=== PATIENT | male | born 1950 | race Caucasian/White ===

== ENCOUNTER 2017-11-27 09:25 | Day surgery (SDC) | payer MEDICARE, BC, MEDICAID ==
[~2017-11-27 09:25] MED LIST: Cataract Ophth Solution EYELF ONE; Lidocaine 4% 5 ML Amp EYELF ONE; Moxifloxacin 0.5% Ophth Soln 3 ML Bottle EYELF ONE; Sodium Chloride 0.9% 10 ML Syringe FLUSH PRN
[2017-11-27] MEDS ORDERED: Sodium Chloride 0.9% 10 ML Syringe IV ONE (09:26)
[2017-11-27] MEDS ORDERED: Midazolam 1 MG/ML 2 ML SDV IV ONE (09:26)
[2017-11-27] MEDS ORDERED: Lidocaine 4% 5 ML Amp EYELF ONE (11:03)
[2017-11-27] MEDS ORDERED: Lidocaine 1% 30 ML SDV ONE (11:03)
[2017-11-27] MEDS ORDERED: Moxifloxacin 0.5% Ophth Soln 3 ML Bottle EYELF ONE (11:03)
[2017-11-27] MEDS ORDERED: prednisoLONE Acetate 1% Ophth Susp 5 ML Bottle EYELF ONE (11:04)
[2017-11-27] MEDS ORDERED: EPINEPHrine 1 MG/ML SDV ONE (11:04)
[2017-11-27] MEDS ORDERED: Balanced Salt Solution Ophth Irrig 500 ML Bottle IOCULAR ONE (11:04)
[2017-11-27] MEDS ORDERED: Povidone-Iodine 5% Sterile Ophth Soln 30 ML Bottle EYELF ONE (11:05)
--- NOTE | 2017-11-27 11:27 | PCM.OPNOTE ---
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 The patient was given topical Lidocaine 4% drops in the left eye. The patient was then prepped and draped in the sterile [facility] fashion. A wire lid speculum was placed in the left eye. A clear cornea temporal approach was used. A [address] blade was used to make a paracentesis site around 5:00. Preservative-free Lidocaine 1% was injected intracamerally. Viscoelastic was placed in the anterior chamber. A 2.5 mm keratome blade was used to make a clear corneal incision around 3:00. A cystotome needle and Utrata forceps were used to perform continuous curvilinear capsulorhexis. Balanced Salt Solution was used to perform hydrodissection and hydrodelineation. The lens nucleus was removed using the divide and conquer phacoemulsification technique. Cumulative dissipated energy was 8.73. Remaining cortex was removed using irrigation- aspiration. Viscoelastic was placed in the capsular bag. PCBOO 16.0 diopter lens was then placed in the capsular bag. Remaining viscoelastic was removed using irrigation-aspiration. The lens was well centered in the capsular bag. The paracentesis and corneal incision were found to be water-tight. The patient was given topical Prednisolone and Vigamox drops. The speculum was removed and a shield was placed over the left eye. The patient was taken to recovery in stable condition. I certify that I was present for and performed the entire operative procedure. Jacob Bella M.D.
[2017-11-27 12:40] VITALS: BP 114/60
== END 2017-11-27 12:30 | disposition home or self-care (01) ==
LOC: DL.SDS 09:25
PROVIDERS: ATTEND Ophthalmology
DX: H25.812 Combined forms of age-related cataract, left eye (principal); I12.0 Hypertensive chronic kidney disease with stage 5 chronic kidney disease or end stage renal disease; D63.1 Anemia in chronic kidney disease; N18.6 End stage renal disease; Z99.2 Dependence on renal dialysis; Z88.1 Allergy status to other antibiotic agents; Z88.8 Allergy status to other drugs, medicaments and biological substances; Z87.891 Personal history of nicotine dependence
CPT/HCPCS: 66984; A9270; J0171; J2250; J7050; V2632; 00142

== ENCOUNTER 2020-01-29 06:34 | Day surgery (SDC) | payer MEDICARE, BC, MEDICAID ==
[~2020-01-29 06:34] MED LIST changes: -Cataract Ophth Solution EYELF ONE; +Dextrose 5%-0.45% NaCl 1,000 ML IV SCH; -Lidocaine 4% 5 ML Amp EYELF ONE; +Midazolam 1 MG/ML 2 ML SDV ONE; -Moxifloxacin 0.5% Ophth Soln 3 ML Bottle EYELF ONE; +fentaNYL 100 MCG/2 ML SDV ONE
[2020-01-29] MEDS ORDERED: fentaNYL 100 MCG/2 ML SDV IV ONE ×4 (06:35→07:42)
[2020-01-29] MEDS ORDERED: Midazolam 1 MG/ML 2 ML SDV IV ONE ×7 (06:35→07:40)
--- NOTE | 2020-01-29 08:18 | OR ---
DATE: 01/29/2020 PROCEDURE: Total colonoscopy. INSTRUMENT USED: PCF-H190DL Olympus video colonoscope. PREMEDICATIONS: Fentanyl 125 mcg intravenous, Versed 4 mg intravenous, nasal O2 cannula. The procedure was done under pulse oximetry, BP recording, and executive producer promos. INDICATION: The patient with previous colonic tubular adenoma. Surveillance colonoscopic examination is done for detection of any polypoid lesions and removal, endoscopic hemostasis therapy if needed. DESCRIPTION OF PROCEDURE: Initial rectal exam was unremarkable. Rigid anoscopy showed small internal hemorrhoids without bleeding from them. The colonoscope was passed with ease. Numerous scattered diverticula were noted in the distal left colon along with deformity. The scope was passed with ease up to the ileocecal area. Photographs were taken of the normal-appearing cecum, identified by landmarks of appendiceal orifice and double-bulged ileocecal folds. No bleeding was noted from any of the visualized areas at the commencement of the examination. The bowel preparation was found to be adequate, [place] scale 2 in all the regions, total score 6. No stricture. No vascular ectasia. No large isolated ulcerations seen. No evidence of diffuse inflammatory bowel disease in the form of friability, contact bleeding, or ulcerations. No polyp or tumor mass identified. Probing the proximal sides of folds and flexures using adequate distention and clearing up the stool material, withdrawal of the scope was made, cecum to rectum time over 6 minutes. No bleeding was noted from any of the visualized areas at the completion of examination. IMPRESSION: 1. Internal hemorrhoids. 2. Diverticulosis. The patient tolerated the procedure well. [facility] /[id number]
[2020-01-29 10:37] VITALS: BP 142/76; PULSE 66
== END 2020-01-29 10:00 | disposition home or self-care (01) ==
LOC: DL.ENDO 06:34
PROVIDERS: ATTEND Internal Medicine Gastroenterology
DX: Z12.11 Encounter for screening for malignant neoplasm of colon (principal); K57.30 Diverticulosis of large intestine without perforation or abscess without bleeding; K64.8 Other hemorrhoids; N25.81 Secondary hyperparathyroidism of renal origin; I10 Essential (primary) hypertension; G47.00 Insomnia, unspecified; D64.9 Anemia, unspecified; Z86.010 Personal history of colon polyps; Z88.1 Allergy status to other antibiotic agents; Z88.8 Allergy status to other drugs, medicaments and biological substances; Z86.73 Personal history of transient ischemic attack (TIA), and cerebral infarction without residual deficits; Z85.528 Personal history of other malignant neoplasm of kidney; Z85.46 Personal history of malignant neoplasm of prostate; Z86.19 Personal history of other infectious and parasitic diseases; Z95.1 Presence of aortocoronary bypass graft; Z90.81 Acquired absence of spleen; Z98.890 Other specified postprocedural states; Z86.718 Personal history of other venous thrombosis and embolism; Z98.49 Cataract extraction status, unspecified eye
CPT/HCPCS: G0105; J2250; J3010; J7042

== ENCOUNTER 2020-12-07 22:22 | Emergency (ER) | payer MEDICARE, BC, MEDICAID ==
[2020-12-07 22:35] VITALS: BP 171/91; PULSE 80
--- NOTE | 2020-12-07 22:47 | EDM.PDOC ---
ED HPI GENERAL MEDICAL PROBLEM - General Chief Complaint: Lower Extremity Injury/Pain Stated Complaint: POSSIBLE BROKEN HIP Time Seen by Provider: 12/07/20 22:30 Source of Information: Reports: Patient, EMS History Limitations: Reports: No Limitations - History of Present Illness INITIAL COMMENTS - FREE TEXT/NARRATIVE: Arrival via [facility], report of fall at home , slipped on hardwood floor landed on left hip, tried to stand then fell again, did not hit head did not lose consciousness. Hx renal transplant. States kidney functioning well. Has fistula but is not using. Left Hip Pain Score (Numeric/FACES): 7 - Related Data Allergies Allergy/AdvReac Type Severity Reaction Status Date / Time chlorhexidine Allergy Blisters Verified 12/07/20 22:39 ciprofloxacin Allergy Rash Verified 12/07/20 22:39 humza inhibitors Allergy Unknown Other Uncoded 12/07/20 22:39 codeine Allergy Unknown Other Uncoded 12/07/20 22:39 Home Meds: Home Meds Cinacalcet [Sensipar] 30 mg PO ASDIRECTED 09/04/13 [History] Melatonin/Pyridoxine HCl (B6) [Melatonin-Vit B6 5-10 mg Tab] 5 mg PO BEDTIME PRN 09/04/13 [History] Metoprolol Tartrate 50 mg PO BID 09/04/13 [History] Multivitamin with Minerals [Multivitamins with Minerals] 1 tab PO DAILY 09/04/13 [History] Zolpidem [Ambien] 10 mg PO BEDTIME PRN 09/04/13 [History] allopurinoL [Zyloprim] 100 mg PO ASDIRECTED 09/04/13 [History] Tacrolimus 1.5 mg PO BID 11/26/17 [History] predniSONE [Prednisone] 5 mg PO DAILY 11/26/17 [History] Clopidogrel Bisulfate [Clopidogrel] 75 mg PO DAILY 01/28/20 [History] amLODIPine [Norvasc] 2.5 mg PO DAILY 01/28/20 [History] atorvaSTATin [Lipitor] 40 mg PO BEDTIME 01/28/20 [History] Famotidine 20 mg PO BID 05/17/20 [History] Magnesium Oxide 400 mg PO BID 05/17/20 [History] Sildenafil [Viagra] 50 mg PO ASDIRECTED PRN 05/17/20 [History] mycophenolate mofetiL [Mycophenolate Mofetil] 1,000 mg PO Q12HR 05/17/20 [History] Past Medical History HEENT History: Reports: Cataract Other HEENT History: cataract surgery in right eye, cataract in left Cardiovascular History: Reports: Blood Clots/VTE/DVT, Bypass, CAD, High Cholesterol, Hypertension Other Cardiovascular History: double bypass. DVT in can't remember where Respiratory History: Reports: None Gastrointestinal History: Reports: Chronic Diarrhea, Diverticulosis, GI Bleed Genitourinary History: Reports: BPH, Chronic Renal Insuffiency, Dialysis, Renal Disease, Other (See Below) Other Genitourinary History: prostectomy. hx of prostate cancer. dialysis for 7 years Musculoskeletal History: Reports: Fracture, Gout, Other (See Below) Other Musculoskeletal History: HX OF LEFT RADIAL FRACTURE. HX OF LEFT ULNAR FRACTURE. LEFT FOREARM FRACTURE Neurological History: Reports: CVA, Vertigo Psychiatric History: Reports: None Endocrine/Metabolic History: Reports: None Hematologic History: Reports: Anemia, Blood Transfusion(s), Other (See Below) Other Hematologic History: hx of sepsis Immunologic History: Reports: Solid Organ Transplant, Other (See Below) Other Immunologic History: spleen removed Oncologic (Cancer) History: Reports: Prostate, Renal Dermatologic History: - Infectious Disease History Infectious Disease History: Reports: None, Chicken Pox, Measles, Mumps - Past Surgical History Head Surgeries/Procedures: Reports: None HEENT Surgical History: Reports: Cataract Surgery, Eye Surgery Cardiovascular Surgical History: Reports: Coronary Artery Bypass GI Surgical History: Reports: Colonoscopy, EGD, Hernia, Abdominal, Other (See Below) Other GI Surgeries/Procedures: spleenectomy. hernia due to spleenectomy. hx of kidney cancer. DISTAL PANCREATECTOMY Male Surgical History: Reports: None, Nephrectomy, Prostatectomy Other Male Surgeries/Procedures: kidney transplant Musculoskeletal Surgical History: Reports: None Dermatological Surgical History: Reports: Other (See Below) Social & Family History - Family History Family Medical History: No Pertinent Family History - Tobacco Use Tobacco Use Status *Q: Never Tobacco User Second Hand Smoke Exposure: No - Caffeine Use Caffeine Use: Reports: Coffee Caffeine Use Comment: occassional coffee and soda - Alcohol Use Date of Last Drink: 12/07/20 - Recreational Drug Use Recreational Drug Use: No - Living Situation & Occupation Occupation: Disabled Review of Systems - Review of Systems Review Of Systems: Comprehensive ROS is negative, except as noted in HPI. ED EXAM, GENERAL - Physical Exam Exam: See Below Exam Limited By: No Limitations General Appearance: Alert, Moderate Distress Eye Exam: Bilateral Eye: EOMI Ears: Normal External Exam, Hearing Grossly Normal Nose: Normal Inspection Throat/Mouth: Normal Inspection Head: Atraumatic, Normocephalic Neck: Normal Inspection Respiratory/Chest: No Respiratory Distress, Lungs Clear Cardiovascular: Normal Peripheral Pulses, Regular Rate, Rhythm GI/Abdominal: Soft, Abnormal Bowel Sounds (hypoactive) Extremities: Other (internal rotation, pain left hip, pedal pulses present). No: Pallor Neurological: Alert, Oriented Course - Vital Signs Last Recorded V/S: Last Vital Signs Temp 98.5 F 12/07/20 22: Pulse 80 12/07/20 22:26 Resp 20 12/07/20 22:26 BP 171/91 H 12/07/20 22: Pulse Ox 97 12/07/20 22:26 - Orders/Labs/Meds Labs: Laboratory Tests 12/07/20 12/07/20 12/07/20 Range/Units 22:44 22:45 22:45 WBC 7.0 (5.0-10.0) 10^3/uL RBC 4.34 L (4.6-6.2) 10^6/uL Hgb 14.1 D (14.0-18.0) g/dL Hct 43.4 (40.0-54.0) % MCV 100.0 D (80-100) fL MCH 32.5 (27.0-34.0) pg MCHC 32.5 L (33.0-35.0) g/dL Plt Count 265 (150-450) 10^3/uL Neut % (Auto) 69.7 (42.2-75.2) % Lymph % (Auto) 16.3 L (20.5-50.1) % [place] % (Auto) 11.6 H (2-8) % Eos % (Auto) 2.0 (1.0-3.0) % Baso % (Auto) 0.4 (0.0-1.0) % Sodium 137 (136-145) mmol/L Potassium 4.3 (3.5-5.1) mmol/L Chloride 100 (98-107) mmol/L Carbon Dioxide 26 (21-32) mmol/L Anion Gap 15.3 H (7-13) mEq/L BUN 17 (7-18) mg/dL Creatinine 1.14 (0.70-1.30) mg/dL Est Cr Clr Drug Dosing 61.28 mL/min Estimated GFR (MDRD) > 60 BUN/Creatinine Ratio 14.9 (No establ ref range) Glucose 139 H (70-99) mg/dL Calcium 8.9 (8.5-10.1) mg/dL Total Bilirubin 0.6 (0.2-1.0) mg/dL AST 34 (15-37) U/L ALT 33 (16-63) U/L Alkaline Phosphatase 96 (46-116) U/L Total Protein 6.8 (6.4-8.2) g/dL Albumin 3.2 L (3.4-5.0) g/dL Globulin 3.6 Albumin/Globulin Ratio 0.89 Urine Color Yellow (YELLOW) Urine Appearance Clear (CLEAR) Urine pH 7.0 (5.0-9.0) Ur Specific [place] 1.020 (1.005-1.030) Urine Protein Negative (NEGATIVE) Urine Glucose (UA) Negative (NEGATIVE) Urine Ketones Negative (NEGATIVE) Urine Occult Blood Negative (NEGATIVE) Urine Nitrite Negative (NEGATIVE) Urine Bilirubin Negative (NEGATIVE) Urine Urobilinogen 0.2 (0.2-1.0) mg/dL Ur Leukocyte Esterase Negative (NEGATIVE) SARS-CoV-2 RNA (FACUNDO) (NEGATIVE) 12/07/20 Range/Units 23:05 WBC (5.0-10.0) 10^3/uL RBC (4.6-6.2) 10^6/uL Hgb (14.0-18.0) g/dL Hct (40.0-54.0) % MCV (80-100) fL MCH (27.0-34.0) pg MCHC (33.0-35.0) g/dL Plt Count (150-450) 10^3/uL Neut % (Auto) (42.2-75.2) % Lymph % (Auto) (20.5-50.1) % [place] % (Auto) (2-8) % Eos % (Auto) (1.0-3.0) % Baso % (Auto) (0.0-1.0) % Sodium (136-145) mmol/L Potassium (3.5-5.1) mmol/L Chloride (98-107) mmol/L Carbon Dioxide (21-32) mmol/L Anion Gap (7-13) mEq/L BUN (7-18) mg/dL Creatinine (0.70-1.30) mg/dL Est Cr Clr Drug Dosing mL/min Estimated GFR (MDRD) BUN/Creatinine Ratio (No establ ref range) Glucose (70-99) mg/dL Calcium (8.5-10.1) mg/dL Total Bilirubin (0.2-1.0) mg/dL AST (15-37) U/L ALT (16-63) U/L Alkaline Phosphatase (46-116) U/L Total Protein (6.4-8.2) g/dL Albumin (3.4-5.0) g/dL Globulin Albumin/Globulin Ratio Urine Color (YELLOW) Urine Appearance (CLEAR) Urine pH (5.0-9.0) Ur Specific [place] (1.005-1.030) Urine Protein (NEGATIVE) Urine Glucose (UA) (NEGATIVE) Urine Ketones (NEGATIVE) Urine Occult Blood (NEGATIVE) Urine Nitrite (NEGATIVE) Urine Bilirubin (NEGATIVE) Urine Urobilinogen (0.2-1.0) mg/dL Ur Leukocyte Esterase (NEGATIVE) SARS-CoV-2 RNA (FACUNDO) Negative (NEGATIVE) Meds: Medications Discontinued Medications Generic Name Dose Route Start Last Admin Trade Name Freq PRN Reason Stop Dose Admin Fentanyl 25 mcg 12/07/20 23:26 12/07/20 23:59 Fentanyl 100 Mcg/2 Ml Sdv IVPUSH 12/07/20 23:27 25 mcg ONETIME ONE Administration - Re-Assessments/Exams Free Text/Narrative Re-Assessment/Exam: 12/07/20 23:55 Dr Angus medina, tx via [facility]. Departure - Departure Time of Disposition: 23:52 Disposition: DC/Tfer to Acute Hospital 02 Condition: Undetermined Clinical Impression: Intertrochanteric fracture of left hip Qualifiers: Encounter type: initial encounter Fracture type: closed Fracture alignment: nondisplaced Qualified Code(s): S72.145A - Nondisplaced intertrochanteric fracture of left femur, initial encounter for closed fracture Fall at home Qualifiers: Encounter type: initial encounter Qualified Code(s): W19.XXXA - Unspecified fall, initial encounter - Discharge Information *PRESCRIPTION DRUG MONITORING PROGRAM REVIEWED*: No *COPY OF PRESCRIPTION DRUG MONITORING REPORT IN PATIENT LEONEL: No Forms: ED Department Discharge Sepsis Event Note (ED) - Evaluation Sepsis Screening Result: No Definite Risk - Focused Exam Vital Signs: Vital Signs Temp Pulse Resp BP Pulse Ox 12/07/20 22:26 98.5 F 80 20 171/91 H 97
[2020-12-07] MEDS ORDERED: fentaNYL 100 MCG/2 ML SDV IVPUSH ONE (23:26)
[2020-12-07 23:29] LABS: ANION GAP 15.3 mEq/L (7-13); CHLORIDE,CL 100 mmol/L (98-107); SODIUM,NA 137 mmol/L (136-145)
--- NOTE | 2020-12-07 23:37 | CT ---
PROCEDURE INFORMATION: Exam: CT Pelvis Without Contrast; Skeletal Exam date and time: 12/07/2020 10:41 PM Age: 69 years old Clinical indication: Injury or trauma; Fall; Blunt trauma (contusions or hematomas); Left; Hip; Additional info: Fall left hip pain TECHNIQUE: Imaging protocol: Computed tomography images of the pelvis without contrast. Exam focused on the skeletal structures. Radiation optimization: All CT scans at this facility use at least one of these dose optimization techniques: automated exposure control; mA and/or kV adjustment per patient size (includes targeted exams where dose is matched to clinical indication); or iterative reconstruction. COMPARISON: No relevant prior studies available. FINDINGS: Kidneys and ureters: Right lower quadrant transplanted kidney is appreciated and appears unremarkable. Atrophic [place] left kidney is noted. Stomach and bowel: No bowel obstruction or significant bowel wall thickening. Reproductive: Prior prostatectomy. Vasculature: The vasculature demonstrates diffuse moderate atherosclerotic calcification. Bones/joints: Severely comminuted left intertrochanteric fracture. No other acutely displaced fractures are identified. No aggressive osseous lesions. Soft tissues: Soft tissue swelling surrounding the left hip. Other findings: There is no evidence of dislocation. IMPRESSION: 1. Severely comminuted left intertrochanteric fracture. 2. Soft tissue swelling surrounding the left hip.
== END 2020-12-08 00:17 ==
LOC: DL.ED 22:22
DX: S72.145A Nondisplaced intertrochanteric fracture of left femur, initial encounter for closed fracture (principal); I25.10 Atherosclerotic heart disease of native coronary artery without angina pectoris; E78.00 Pure hypercholesterolemia, unspecified; Z88.5 Allergy status to narcotic agent; Z88.1 Allergy status to other antibiotic agents; Z88.8 Allergy status to other drugs, medicaments and biological substances; Z79.02 Long term (current) use of antithrombotics/antiplatelets; Z79.899 Other long term (current) drug therapy; Z20.822 Contact with and (suspected) exposure to COVID-19; Z95.1 Presence of aortocoronary bypass graft; W01.0XXA Fall on same level from slipping, tripping and stumbling without subsequent striking against object, initial encounter; Y92.009 Unspecified place in unspecified non-institutional (private) residence as the place of occurrence of the external cause
CPT/HCPCS: 36415; 72192; 80053; 81003; 85025; 96374; 99284; 99285-25; J3010; U0002

== ENCOUNTER 2020-12-13 09:31 | Inpatient (IN) | payer MEDICARE, BC, MEDICAID ==
[2020-12-13] MEDS: Acetaminophen 500 MG Tab PO SCH ×2 (16:27→22:09)
--- NOTE | 2020-12-13 18:33 | PCM.HP ---
H&P History of Present Illness - General Date of Service: 12/13/20 Admit Problem/Dx: Admission Diagnosis/Problem Admission Diagnosis/Problem Hip fracture, intertrochanteric - History of Present Illness Initial Comments - Free Text/Narative: 69M w/ pmh CAD s/p CABG, ESRD now s/p renal transplant, HT s/p recent left hip fxt s/p gamma nail transferred to for swing bed. c/o pain w/ PT otherwise no complaints. Left Hip Pain Score (Numeric/FACES): 6 - Related Data Allergies/Adverse Reactions: Allergies Allergy/AdvReac Type Severity Reaction Status Date / Time chlorhexidine Allergy Blisters Verified 12/13/20 13:55 ciprofloxacin Allergy Rash Verified 12/13/20 13:55 humza inhibitors Allergy Unknown Other Uncoded 12/07/20 22:39 Home Medications: Home Meds Cinacalcet [Sensipar] 30 mg PO .SUMOWEFR 09/04/13 [History] Multivitamin with Minerals [Multivitamins with Minerals] 1 tab PO DAILY 09/04/13 [History] Zolpidem [Ambien] 10 mg PO BEDTIME PRN 09/04/13 [History] allopurinoL [Zyloprim] 100 mg PO Q48H 09/04/13 [History] Tacrolimus 1 mg PO BID 11/26/17 [History] predniSONE [Prednisone] 5 mg PO DAILY 11/26/17 [History] Clopidogrel Bisulfate [Clopidogrel] 75 mg PO DAILY 01/28/20 [History] amLODIPine [Norvasc] 2.5 mg PO DAILY 01/28/20 [History] atorvaSTATin [Lipitor] 40 mg PO BEDTIME 01/28/20 [History] Famotidine 20 mg PO BID 05/17/20 [History] Magnesium Oxide 600 mg PO BID 05/17/20 [History] Sildenafil [Viagra] 50 mg PO ASDIRECTED PRN 05/17/20 [History] mycophenolate mofetiL [Mycophenolate Mofetil] 1,000 mg PO Q12HR 05/17/20 [History] Acetaminophen 1,000 mg PO Q8HR 12/13/20 [History] Aspirin [Aspirin EC] 81 mg PO DAILY 12/13/20 [History] Lidocaine 5% [Lidoderm 5%] 1 patch TOP DAILY 12/13/20 [History] Melatonin 10 mg PO BEDTIME 12/13/20 [History] Metoprolol Tartrate 50 mg PO BID 12/13/20 [History] Tetrahydrozoline HCl [Eye Drops] 1 drop EYEBOTH QID PRN 12/13/20 [History] traMADol [Ultram] 50 mg PO Q8HR PRN 12/13/20 [History] Past Medical History HEENT History: Reports: Cataract Other HEENT History: cataract surgery in right eye, cataract in left Cardiovascular History: Reports: Blood Clots/VTE/DVT, Bypass, CAD, High Cholesterol, Hypertension Other Cardiovascular History: double bypass. DVT in can't remember where Respiratory History: Reports: None Gastrointestinal History: Reports: Chronic Diarrhea, Diverticulosis, GI Bleed Genitourinary History: Reports: BPH, Chronic Renal Insuffiency, Dialysis, Renal Disease, Other (See Below) Other Genitourinary History: prostectomy. hx of prostate cancer. dialysis for 7 years Musculoskeletal History: Reports: Fracture, Gout, Other (See Below) Other Musculoskeletal History: HX OF LEFT RADIAL FRACTURE. HX OF LEFT ULNAR FRACTURE. LEFT FOREARM FRACTURE. Left Hip [id number] Neurological History: Reports: CVA, Vertigo Psychiatric History: Reports: None Endocrine/Metabolic History: Reports: None Hematologic History: Reports: Anemia, Blood Transfusion(s), Other (See Below) Other Hematologic History: hx of sepsis Immunologic History: Reports: Solid Organ Transplant, Other (See Below) Other Immunologic History: spleen removed, kidney transplant Oncologic (Cancer) History: Reports: Prostate, Renal Dermatologic History: - Infectious Disease History Infectious Disease History: Reports: None, Chicken Pox, Measles, Mumps, VRE - Past Surgical History Head Surgeries/Procedures: Reports: None HEENT Surgical History: Reports: Cataract Surgery, Eye Surgery Cardiovascular Surgical History: Reports: Coronary Artery Bypass GI Surgical History: Reports: Colonoscopy, EGD, Hernia, Abdominal, Other (See Below) Other GI Surgeries/Procedures: spleenectomy. hernia due to spleenectomy. hx of kidney cancer. DISTAL PANCREATECTOMY Male Surgical History: Reports: None, Nephrectomy, Prostatectomy Other Male Surgeries/Procedures: kidney transplant Musculoskeletal Surgical History: Reports: None, ORIF Dermatological Surgical History: Reports: Other (See Below) Social & Family History - Family History Family Medical History: No Pertinent Family History - Tobacco Use Tobacco Use Status *Q: Former Tobacco User Years of Tobacco use: 43 Packs/Tins Daily: 1 Used Tobacco, but Quit: Yes Month/Year Tobacco Last Used: 2007 - Caffeine Use Caffeine Use: Reports: Coffee Caffeine Use Comment: occassional coffee and soda - Alcohol Use Number of Drinks Per Day: 2 - Recreational Drug Use Recreational Drug Use: No - Living Situation & Occupation Occupation: Disabled H&P Review of Systems - Review of Systems: Review Of Systems: See Below General: Denies: Fever, Chills HEENT: Denies: Headaches Pulmonary: Denies: Shortness of Breath Cardiovascular: Denies: Chest Pain Gastrointestinal: Denies: Abdominal Pain Genitourinary: Denies: Dysuria Skin: Denies: Jaundice Psychiatric: Denies: Confusion, Depression Neurological: Denies: Dizziness Hematologic/Lymphatic: Denies: Easy Bleeding Exam - Exam Exam: See Below - Vital Signs Vital Signs: Last Vital Signs Temp 98.4 F 12/13/20 14:09 Pulse 78 12/13/20 14:09 Resp 18 12/13/20 14:09 BP 132/80 12/13/20 14:09 Pulse Ox 100 12/13/20 14:09 Weight: 188 lb 9.6 oz - Exam Quality Assessment: No: Supplemental Oxygen General: Alert, Oriented HEENT: Conjunctiva Clear Neck: Supple Lungs: Clear to Auscultation Cardiovascular: Regular Rate, Regular Rhythm, Systolic Murmur GI/Abdominal Exam: Normal Bowel Sounds, Soft, Non-Tender, No Distention Back Exam: Normal Inspection Extremities: Normal Inspection, No Pedal Edema Skin: Warm, Dry, Intact Neuro Extensive - Mental Status: Alert, Oriented x3, Normal Mood/Affect, Normal Cognition Psychiatric: Alert, Normal Affect, Normal Mood Physical Exam Comments:: surgical site c/d/i Problem List Initiated/Reviewed/Updated: Yes Orders Last 24hrs: Active Orders 24 hr Category Date Time Status Patient Status [ADT] Routine ADT 12/13/20 13:47 Active Antiembolic Devices [RC] PER UNIT ROUTINE Care 12/13/20 14:06 Active Oxygen Therapy [RC] PRN Care 12/13/20 13:47 Active Up With Assistance [RC] ASDIRECTED Care 12/13/20 13:47 Active VTE/DVT Education [RC] 10, Care 12/13/20 13:47 Active Vital Signs [RC] 08,20 Care 12/13/20 13:47 Active OT Evaluation and Treatment [CONS] Routine Cons 12/13/20 14:02 Active PT Evaluation and Treatment [CONS] Routine Cons 12/13/20 14:02 Active Heart Healthy Diet [DIET] Diet 12/13/20 Dinner Active Acetaminophen [Tylenol Extra Strength] Med 12/13/20 14:30 Active 1,000 mg PO Q8HR Aspirin [Halfprin] Med 12/14/20 09:00 Active 81 mg PO DAILY Clopidogrel [Plavix] Med 12/14/20 09:00 Active 75 mg PO DAILY Famotidine [Pepcid] Med 12/13/20 21:00 Active 20 mg PO BID Lidocaine 5% [Lidoderm 5%] Med 12/14/20 09:00 Active 700 mg TOP DAILY Metoprolol Tartrate [Lopressor] Med 12/13/20 21:00 Active 50 mg PO BID Multivitamins/Minerals [Vitamins and Minerals] Med 12/14/20 09:00 Active 1 tab PO DAILY Patient's Own Medication [Ptom] Med 12/13/20 15:58 Active 0 each EYEBOTH QID PRN Patient's Own Medication [Ptom] Med 12/13/20 21:00 Active 0 each PO BEDTIME Patient's Own Medication [Ptom] Med 12/13/20 21:00 Active 0 each PO BID Patient's Own Medication [Ptom] Med 12/13/20 21:00 Active 0 each PO BID Patient's Own Medication [Ptom] Med 12/13/20 21:00 Active 0 each PO Q12HR Patient's Own Medication [Ptom] Med 12/15/20 08:00 Active 0 each PO SuMoWeFr@0800 Remove Patch Med 12/13/20 21:00 Active 1 ea TRDERM BEDTIME Zolpidem [Ambien] Med 12/13/20 14:37 Active 10 mg PO BEDTIME PRN allopurinoL [Zyloprim] Med 12/14/20 09:00 Active 100 mg PO Q48H amLODIPine [Norvasc] Med 12/14/20 09:00 Active 2.5 mg PO DAILY atorvaSTATin [Lipitor] Med 12/13/20 21:00 Active 40 mg PO BEDTIME predniSONE Med 12/14/20 08:00 Active 5 mg PO DAILY@0800 traMADol [Ultram] Med 12/13/20 14:06 Active 100 mg PO DAILY PRN Sequential Compression Device [OM.PC] Per Unit Routine Oth 12/13/20 13:52 Ordered Resuscitation Status Routine Resus Stat 12/13/20 13:47 Ordered Medication Orders Acetaminophen (Acetaminophen 500 Mg Tab) 1,000 mg PO Q8HR [facility] Last Admin: 12/13/20 16:27 Dose: 1,000 mg Documented by: ANGE Allopurinol (Allopurinol 100 Mg Tab) 100 mg PO Q48H [facility] Amlodipine Besylate (Amlodipine 5 Mg Tab) 2.5 mg PO DAILY [facility] Aspirin (Aspirin 81 Mg Tab.Ec) 81 mg PO DAILY [facility] Atorvastatin Calcium (Atorvastatin 20 Mg Tab) 40 mg PO BEDTIME JANET Clopidogrel Bisulfate (Clopidogrel 75 Mg Tab) 75 mg PO DAILY [facility] Famotidine (Famotidine 20 Mg Tab) 20 mg PO BID [facility] Lidocaine (Lidocaine 5% 700 Mg Patch) 700 mg TOP DAILY [facility] Metoprolol Tartrate (Metoprolol Tartrate 50 Mg Tab) 50 mg PO BID [facility] Miscellaneous Information (Remove Lidocaine Patch) 1 ea TRDERM BEDTIME [facility] Multivitamins/Minerals (Multivitamins, Therapeutic With Minerals Tab) 1 tab PO DAILY [facility] Cinacalcet [Sensipar ] 30 Mg Tablet Pt Own Med 0 each PO SuMoWeFr@0800 [facility] Melatonin 5 Mg Tablet Pt Own Med* * 0 each PO BEDTIME [facility] Mycophenolate Mofetil 500 Mg Tab * *Pt Own Med 0 each PO Q12HR [facility] Tacrolimus 1 Mg Capsule Pt Own Med 0 each PO BID [facility] Tetrahydrozoline Hcl [Eye Drops] 15 Ml Drops Pt Own Med 0 each EYEBOTH QID PRN PRN Reason: Itching Magnesium Oxide 400 Mg Tablet Pt Own Med 0 each PO BID [facility] Prednisone (Prednisone 5 Mg Tab) 5 mg PO DAILY@0800 [facility] Tramadol HCl (Tramadol 50 Mg Tab) 100 mg PO DAILY PRN PRN Reason: physical therapy session Zolpidem Tartrate (Zolpidem 5 Mg Tab) 10 mg PO BEDTIME PRN PRN Reason: Insomnia Assessment/Plan Comment:: #left hip fxt s/p gamma nail - mgt per PT - ortho f/up #CAD / s/p renal transplant / HT - c/w home meds PPX - LMWH
[2020-12-13] MEDS: atorvaSTATin 20 MG Tab PO SCH (21:51)
[2020-12-13] MEDS: Famotidine 20 MG Tab PO SCH (21:51)
[2020-12-13] MEDS: MELATONIN 5 MG PO SCH (21:54)
[2020-12-13] MEDS: MAGNESIUM OXIDE 400 MG PO SCH (21:55)
[2020-12-13] MEDS: MYCOPHENOLATE MOFETIL 500 MG PO SCH (21:58)
[2020-12-13] MEDS: TACROLIMUS 1 MG PO SCH (21:59)
[2020-12-13] MEDS: traMADol 50 MG Tab PO PRN (22:00)
[2020-12-13] MEDS: Metoprolol Tartrate 50 MG Tab PO SCH (22:07)
[2020-12-13] MEDS: Zolpidem 5 MG Tab PO PRN (22:22)
[2020-12-14] MEDS: Acetaminophen 500 MG Tab PO SCH ×3 (05:58→21:28)
[2020-12-14] MEDS: Lidocaine 5% 700 MG Patch TOP SCH (10:09)
[2020-12-14] MEDS: predniSONE 5 MG Tab PO SCH (10:09)
[2020-12-14] MEDS: Aspirin 81 MG Tab.EC PO SCH (10:09)
[2020-12-14] MEDS: Metoprolol Tartrate 50 MG Tab PO SCH ×2 (10:10→21:20)
[2020-12-14] MEDS: amLODIPine 5 MG Tab PO SCH (10:11)
[2020-12-14] MEDS: Multivitamins, Therapeutic with Minerals Tab PO SCH (10:12)
[2020-12-14] MEDS: Allopurinol 100 MG Tab PO SCH (10:12)
[2020-12-14] MEDS: Clopidogrel 75 MG Tab PO SCH (10:13)
[2020-12-14] MEDS: Famotidine 20 MG Tab PO SCH ×2 (10:13→21:19)
[2020-12-14] MEDS: Enoxaparin 40 MG/0.4 ML Syringe SUBCUT SCH (10:14)
[2020-12-14] MEDS: MAGNESIUM OXIDE 400 MG PO SCH ×2 (10:15→21:21)
[2020-12-14] MEDS: MYCOPHENOLATE MOFETIL 500 MG PO SCH ×2 (10:17→21:25)
[2020-12-14] MEDS: TACROLIMUS 1 MG PO SCH ×2 (10:19→21:26)
[2020-12-14] MEDS: traMADol 50 MG Tab PO PRN ×2 (14:40→21:31)
[2020-12-14] MEDS: atorvaSTATin 20 MG Tab PO SCH (21:20)
[2020-12-14] MEDS: MELATONIN 5 MG PO SCH (21:24)
[2020-12-14] MEDS: Zolpidem 5 MG Tab PO PRN (21:31)
[2020-12-15] MEDS: Acetaminophen 500 MG Tab PO SCH ×3 (06:24→22:39)
[2020-12-15] MEDS: amLODIPine 5 MG Tab PO SCH (08:12)
[2020-12-15] MEDS: Multivitamins, Therapeutic with Minerals Tab PO SCH (08:12)
[2020-12-15] MEDS: Aspirin 81 MG Tab.EC PO SCH (08:12)
[2020-12-15] MEDS: Clopidogrel 75 MG Tab PO SCH (08:12)
[2020-12-15] MEDS: Famotidine 20 MG Tab PO SCH ×2 (08:12→20:06)
[2020-12-15] MEDS: Metoprolol Tartrate 50 MG Tab PO SCH ×2 (08:13→20:06)
[2020-12-15] MEDS: predniSONE 5 MG Tab PO SCH (08:13)
[2020-12-15] MEDS: traMADol 50 MG Tab PO PRN ×2 (08:14→22:40)
[2020-12-15] MEDS: MYCOPHENOLATE MOFETIL 500 MG PO SCH ×2 (08:15→20:09)
[2020-12-15] MEDS: MAGNESIUM OXIDE 400 MG PO SCH ×2 (08:16→20:07)
[2020-12-15] MEDS: CINACALCET 30 MG PO SCH (08:17)
[2020-12-15] MEDS: TACROLIMUS 1 MG PO SCH ×2 (08:18→20:10)
[2020-12-15] MEDS: Enoxaparin 40 MG/0.4 ML Syringe SUBCUT SCH (08:22)
[2020-12-15] MEDS: Lidocaine 5% 700 MG Patch TOP SCH (08:23)
[2020-12-15] MEDS: atorvaSTATin 20 MG Tab PO SCH (20:06)
[2020-12-15] MEDS: MELATONIN 5 MG PO SCH (22:39)
[2020-12-15] MEDS: Zolpidem 5 MG Tab PO PRN (22:40)
[2020-12-16] MEDS: Acetaminophen 500 MG Tab PO SCH ×3 (05:59→21:28)
[2020-12-16] MEDS: Multivitamins, Therapeutic with Minerals Tab PO SCH (08:33)
[2020-12-16] MEDS: predniSONE 5 MG Tab PO SCH (08:34)
[2020-12-16] MEDS: Metoprolol Tartrate 50 MG Tab PO SCH ×2 (08:34→21:19)
[2020-12-16] MEDS: amLODIPine 5 MG Tab PO SCH (08:35)
[2020-12-16] MEDS: Famotidine 20 MG Tab PO SCH ×2 (08:36→21:18)
[2020-12-16] MEDS: Clopidogrel 75 MG Tab PO SCH (08:36)
[2020-12-16] MEDS: Aspirin 81 MG Tab.EC PO SCH (08:36)
[2020-12-16] MEDS: Enoxaparin 40 MG/0.4 ML Syringe SUBCUT SCH (08:37)
[2020-12-16] MEDS: Allopurinol 100 MG Tab PO SCH (08:38)
[2020-12-16] MEDS: MAGNESIUM OXIDE 400 MG PO SCH ×2 (08:39→21:25)
[2020-12-16] MEDS: MYCOPHENOLATE MOFETIL 500 MG PO SCH ×2 (08:40→21:26)
[2020-12-16] MEDS: TACROLIMUS 1 MG PO SCH ×2 (08:41→21:26)
[2020-12-16] MEDS: Lidocaine 5% 700 MG Patch TOP SCH (08:42)
[2020-12-16] MEDS: traMADol 50 MG Tab PO PRN ×2 (14:41→21:29)
[2020-12-16] MEDS: atorvaSTATin 20 MG Tab PO SCH (21:18)
[2020-12-16] MEDS: MELATONIN 5 MG PO SCH (21:27)
[2020-12-16] MEDS: Zolpidem 5 MG Tab PO PRN (21:27)
[2020-12-17] MEDS: Acetaminophen 500 MG Tab PO SCH ×3 (06:12→21:32)
[2020-12-17] MEDS: amLODIPine 5 MG Tab PO SCH (08:53)
[2020-12-17] MEDS: Clopidogrel 75 MG Tab PO SCH (08:55)
[2020-12-17] MEDS: TACROLIMUS 1 MG PO SCH ×2 (08:55→21:25)
[2020-12-17] MEDS: Multivitamins, Therapeutic with Minerals Tab PO SCH (08:55)
[2020-12-17] MEDS: traMADol 50 MG Tab PO PRN ×2 (08:55→15:51)
[2020-12-17] MEDS: Aspirin 81 MG Tab.EC PO SCH (08:57)
[2020-12-17] MEDS: Famotidine 20 MG Tab PO SCH ×2 (08:57→21:22)
[2020-12-17] MEDS: Metoprolol Tartrate 50 MG Tab PO SCH ×2 (08:57→21:22)
[2020-12-17] MEDS: predniSONE 5 MG Tab PO SCH (08:58)
[2020-12-17] MEDS: Enoxaparin 40 MG/0.4 ML Syringe SUBCUT SCH (08:58)
[2020-12-17] MEDS: Lidocaine 5% 700 MG Patch TOP SCH (08:58)
[2020-12-17] MEDS: MAGNESIUM OXIDE 400 MG PO SCH ×2 (08:58→21:23)
[2020-12-17] MEDS: MYCOPHENOLATE MOFETIL 500 MG PO SCH ×2 (09:00→21:24)
[2020-12-17] MEDS: CINACALCET 30 MG PO SCH (09:01)
[2020-12-17] MEDS: atorvaSTATin 20 MG Tab PO SCH (21:22)
[2020-12-17] MEDS: MELATONIN 5 MG PO SCH (21:24)
[2020-12-17] MEDS: Zolpidem 5 MG Tab PO PRN (21:31)
[2020-12-18] MEDS: Acetaminophen 500 MG Tab PO SCH ×3 (06:45→21:17)
[2020-12-18] MEDS: Lidocaine 5% 700 MG Patch TOP SCH (09:13)
[2020-12-18] MEDS: Multivitamins, Therapeutic with Minerals Tab PO SCH (09:15)
[2020-12-18] MEDS: Metoprolol Tartrate 50 MG Tab PO SCH ×2 (09:15→21:15)
[2020-12-18] MEDS: Famotidine 20 MG Tab PO SCH ×2 (09:15→21:15)
[2020-12-18] MEDS: Clopidogrel 75 MG Tab PO SCH (09:15)
[2020-12-18] MEDS: Allopurinol 100 MG Tab PO SCH (09:15)
[2020-12-18] MEDS: Aspirin 81 MG Tab.EC PO SCH (09:16)
[2020-12-18] MEDS: amLODIPine 5 MG Tab PO SCH (09:16)
[2020-12-18] MEDS: predniSONE 5 MG Tab PO SCH (09:16)
[2020-12-18] MEDS: Enoxaparin 40 MG/0.4 ML Syringe SUBCUT SCH (09:17)
[2020-12-18] MEDS: MAGNESIUM OXIDE 400 MG PO SCH ×2 (09:23→21:08)
[2020-12-18] MEDS: TACROLIMUS 1 MG PO SCH ×2 (09:41→21:10)
[2020-12-18] MEDS: MYCOPHENOLATE MOFETIL 500 MG PO SCH ×2 (11:05→21:09)
[2020-12-18] MEDS: traMADol 50 MG Tab PO PRN ×2 (15:12→21:12)
[2020-12-18] MEDS: atorvaSTATin 20 MG Tab PO SCH (21:14)
[2020-12-18] MEDS: MELATONIN 5 MG PO SCH (21:16)
[2020-12-18] MEDS: Zolpidem 5 MG Tab PO PRN (21:18)
[2020-12-19] MEDS: Acetaminophen 500 MG Tab PO SCH ×3 (06:36→21:34)
[2020-12-19] MEDS: amLODIPine 5 MG Tab PO SCH (08:10)
[2020-12-19] MEDS: Famotidine 20 MG Tab PO SCH ×2 (08:10→21:36)
[2020-12-19] MEDS: Clopidogrel 75 MG Tab PO SCH (08:10)
[2020-12-19] MEDS: predniSONE 5 MG Tab PO SCH (08:10)
[2020-12-19] MEDS: Multivitamins, Therapeutic with Minerals Tab PO SCH (08:10)
[2020-12-19] MEDS: Aspirin 81 MG Tab.EC PO SCH (08:10)
[2020-12-19] MEDS: Metoprolol Tartrate 50 MG Tab PO SCH ×2 (08:12→21:34)
[2020-12-19] MEDS: MAGNESIUM OXIDE 400 MG PO SCH ×2 (08:13→22:08)
[2020-12-19] MEDS: TACROLIMUS 1 MG PO SCH ×2 (08:14→21:40)
[2020-12-19] MEDS: MYCOPHENOLATE MOFETIL 500 MG PO SCH ×2 (08:14→21:39)
[2020-12-19] MEDS: CINACALCET 30 MG PO SCH (08:15)
[2020-12-19] MEDS: Enoxaparin 40 MG/0.4 ML Syringe SUBCUT SCH (08:15)
[2020-12-19] MEDS: Lidocaine 5% 700 MG Patch TOP SCH (08:18)
[2020-12-19] MEDS: traMADol 50 MG Tab PO PRN ×2 (11:48→21:36)
[2020-12-19] MEDS: atorvaSTATin 20 MG Tab PO SCH (21:34)
[2020-12-19] MEDS: Zolpidem 5 MG Tab PO PRN (21:34)
[2020-12-19] MEDS: MELATONIN 5 MG PO SCH (21:44)
[2020-12-20] MEDS: Acetaminophen 500 MG Tab PO SCH ×3 (05:48→21:13)
[2020-12-20] MEDS: Aspirin 81 MG Tab.EC PO SCH (09:34)
[2020-12-20] MEDS: Famotidine 20 MG Tab PO SCH ×2 (09:35→21:14)
[2020-12-20] MEDS: predniSONE 5 MG Tab PO SCH (09:35)
[2020-12-20] MEDS: Multivitamins, Therapeutic with Minerals Tab PO SCH (09:35)
[2020-12-20] MEDS: Metoprolol Tartrate 50 MG Tab PO SCH ×2 (09:35→21:14)
[2020-12-20] MEDS: Allopurinol 100 MG Tab PO SCH (09:36)
[2020-12-20] MEDS: amLODIPine 5 MG Tab PO SCH (09:36)
[2020-12-20] MEDS: Clopidogrel 75 MG Tab PO SCH (09:36)
[2020-12-20] MEDS: Enoxaparin 40 MG/0.4 ML Syringe SUBCUT SCH (09:37)
[2020-12-20] MEDS: MYCOPHENOLATE MOFETIL 500 MG PO SCH ×2 (09:43→21:19)
[2020-12-20] MEDS: TACROLIMUS 1 MG PO SCH ×2 (09:44→21:20)
[2020-12-20] MEDS: MAGNESIUM OXIDE 400 MG PO SCH ×2 (09:44→21:16)
[2020-12-20] MEDS: CINACALCET 30 MG PO SCH (09:46)
[2020-12-20] MEDS: Lidocaine 5% 700 MG Patch TOP SCH (09:52)
[2020-12-20 10:17] LABS: ANION GAP 9.2 mEq/L (7-13)
--- NOTE | 2020-12-20 10:48 | PCM.PN ---
- General Info Date of Service: 12/20/20 Subjective Update: Progressing w/ PT. Finally walking short distances. Pain is controlled. - Patient Data Vitals - Most Recent: Last Vital Signs Temp 97.3 F 12/20/20 08:30 Pulse 65 12/20/20 09:35 Resp 20 12/20/20 08:30 BP 131/75 12/20/20 09:36 Pulse Ox 97 12/20/20 08:30 Weight - Most Recent: 188 lb 11.2 oz I&O - Last 24 Hours: Intake & Output 12/19/20 12/20/20 12/20/20 22:59 06:59 14:59 Intake Total 120 Balance 120 Lab Results Last 24 Hours: Laboratory Results - last 24 hr 12/20/20 12/20/20 Range/Units 09:57 09:57 WBC 9.7 (5.0-10.0) 10^3/uL RBC 3.27 L (4.6-6.2) 10^6/uL Hgb 10.8 L D (14.0-18.0) g/dL Hct 34.4 L (40.0-54.0) % MCV 105.2 H D (80-100) fL MCH 33.0 (27.0-34.0) pg MCHC 31.4 L (33.0-35.0) g/dL Plt Count 623 H D (150-450) 10^3/uL Neut % (Auto) 68.7 (42.2-75.2) % Lymph % (Auto) 14.4 L (20.5-50.1) % King % (Auto) 12.0 H (2-8) % Eos % (Auto) 4.3 H (1.0-3.0) % Baso % (Auto) 0.6 (0.0-1.0) % Sodium 139 (136-145) mmol/L Potassium 4.2 (3.5-5.1) mmol/L Chloride 104 (98-107) mmol/L Carbon Dioxide 30 (21-32) mmol/L Anion Gap 9.2 (7-13) mEq/L BUN 28 H (7-18) mg/dL Creatinine 1.45 H (0.70-1.30) mg/dL Est Cr Clr Drug Dosing 46.73 mL/min Estimated GFR (MDRD) 48 Glucose 128 H (70-99) mg/dL Calcium 10.2 H (8.5-10.1) mg/dL Med Orders - Current: Current Medications Acetaminophen (Acetaminophen 500 Mg Tab) 1,000 mg PO Q8HR [facility] Last Admin: 12/20/20 05:48 Dose: 1,000 mg Documented by: Allopurinol (Allopurinol 100 Mg Tab) 100 mg PO Q48H [facility] Last Admin: 12/20/20 09:36 Dose: 100 mg Documented by: Amlodipine Besylate (Amlodipine 5 Mg Tab) 2.5 mg PO DAILY [facility] Last Admin: 12/20/20 09:36 Dose: 2.5 mg Documented by: Aspirin (Aspirin 81 Mg Tab.Ec) 81 mg PO DAILY [facility] Last Admin: 12/20/20 09:34 Dose: 81 mg Documented by: Atorvastatin Calcium (Atorvastatin 20 Mg Tab) 40 mg PO BEDTIME [facility] Last Admin: 12/19/20 21:34 Dose: 40 mg Documented by: Clopidogrel Bisulfate (Clopidogrel 75 Mg Tab) 75 mg PO DAILY [facility] Last Admin: 12/20/20 09:36 Dose: 75 mg Documented by: Enoxaparin Sodium (Enoxaparin 40 Mg/0.4 Ml Syringe) 40 mg SUBCUT DAILY [facility] Last Admin: 12/20/20 09:37 Dose: 40 mg Documented by: Famotidine (Famotidine 20 Mg Tab) 20 mg PO BID [facility] Last Admin: 12/20/20 09:35 Dose: 20 mg Documented by: Lidocaine (Lidocaine 5% 700 Mg Patch) 700 mg TOP DAILY [facility] Last Admin: 12/20/20 09:52 Dose: 700 mg Documented by: Metoprolol Tartrate (Metoprolol Tartrate 50 Mg Tab) 50 mg PO BID [facility] Last Admin: 12/20/20 09:35 Dose: 50 mg Documented by: Miscellaneous Information (Remove Lidocaine Patch) 1 ea TRDERM BEDTIME [facility] Last Admin: 12/19/20 21:38 Dose: 1 ea Documented by: Multivitamins/Minerals (Multivitamins, Therapeutic With Minerals Tab) 1 tab PO DAILY [facility] Last Admin: 12/20/20 09:35 Dose: 1 tab Documented by: Cinacalcet [Sensipar ] 30 Mg Tablet Pt Own Med 0 each PO SuMoWeFr@0800 [facility] Last Admin: 12/20/20 09:46 Dose: 1 each Documented by: Melatonin 5 Mg Tablet Pt Own Med* * 0 each PO BEDTIME [facility] Last Admin: 12/19/20 21:44 Dose: 2 each Documented by: Mycophenolate Mofetil 500 Mg Tab * *Pt Own Med 0 each PO Q12HR [facility] Last Admin: 12/20/20 09:43 Dose: 2 each Documented by: Tacrolimus 1 Mg Capsule Pt Own Med 0 each PO BID [facility] Last Admin: 12/20/20 09:44 Dose: 1 each Documented by: Tetrahydrozoline Hcl [Eye Drops] 15 Ml Drops Pt Own Med 0 each EYEBOTH QID PRN PRN Reason: Itching Magnesium Oxide 400 Mg Tablet Pt Own Med 0 each PO BID [facility] Last Admin: 12/20/20 09:44 Dose: 1.5 each Documented by: Prednisone (Prednisone 5 Mg Tab) 5 mg PO DAILY@0800 [facility] Last Admin: 12/20/20 09:35 Dose: 5 mg Documented by: Tramadol HCl (Tramadol 50 Mg Tab) 100 mg PO DAILY PRN PRN Reason: physical therapy session Last Admin: 12/19/20 21:36 Dose: 100 mg Documented by: Tramadol HCl (Tramadol 50 Mg Tab) 50 mg PO Q6H PRN PRN Reason: Pain (moderate 4-6) Last Admin: 12/19/20 11:48 Dose: 50 mg Documented by: Zolpidem Tartrate (Zolpidem 5 Mg Tab) 10 mg PO BEDTIME PRN PRN Reason: Insomnia Last Admin: 12/19/20 21:34 Dose: 10 mg Documented by: - Exam Quality Assessment: No: Supplemental Oxygen General: Alert, Oriented HEENT: Pupils Equal Neck: Supple Lungs: Clear to Auscultation, Normal Respiratory Effort Cardiovascular: Regular Rate, Regular Rhythm GI/Abdominal Exam: Normal Bowel Sounds, Soft, Non-Tender, No Distention Extremities: Other (old bruising from left hip all the way down to calf, well ap pearing surgical sites) Skin: Warm, Dry, Intact Wound/Incisions: Healing Well Neurological: No New Focal Deficit Psy/Mental Status: Alert, Normal Affect, Normal Mood - Patient Data Lab Results Last 24 hrs: Laboratory Results - last 24 hr 05/24/21 05/24/21 Range/Units 09:57 09:57 WBC 9.7 (5.0-10.0) 10^3/uL RBC 3.27 L (4.6-6.2) 10^6/uL Hgb 10.8 L D (14.0-18.0) g/dL Hct 34.4 L (40.0-54.0) % MCV 105.2 H D (80-100) fL MCH 33.0 (27.0-34.0) pg MCHC 31.4 L (33.0-35.0) g/dL Plt Count 623 H D (150-450) 10^3/uL Neut % (Auto) 68.7 (42.2-75.2) % Lymph % (Auto) 14.4 L (20.5-50.1) % King % (Auto) 12.0 H (2-8) % Eos % (Auto) 4.3 H (1.0-3.0) % Baso % (Auto) 0.6 (0.0-1.0) % Sodium 139 (136-145) mmol/L Potassium 4.2 (3.5-5.1) mmol/L Chloride 104 (98-107) mmol/L Carbon Dioxide 30 (21-32) mmol/L Anion Gap 9.2 (7-13) mEq/L BUN 28 H (7-18) mg/dL Creatinine 1.45 H (0.70-1.30) mg/dL Est Cr Clr Drug Dosing 46.73 mL/min Estimated GFR (MDRD) 48 Glucose 128 H (70-99) mg/dL Calcium 10.2 H (8.5-10.1) mg/dL Result Diagrams: 12/20/20 09:57 12/20/20 09:57 Sepsis Event Note - Evaluation Sepsis Screening Result: No Definite Risk - Focused Exam Vital Signs: Vital Signs Temp Pulse Pulse Resp BP BP Pulse Ox 12/20/20 09:36 131/75 12/20/20 09:35 65 131/75 12/20/20 08:30 97.3 F 65 20 131/75 97 12/20/20 04:00 97 F 60 20 146/65 H 93 L - Problem List Review Problem List Initiated/Reviewed/Updated: Yes - Plan Plan:: #left hip fxt s/p gamma nail - mgt per PT - ortho f/up appt on 12/23 - check labs today #CAD / s/p renal transplant / HT - c/w home meds PPX - LMWH
[2020-12-20] MEDS: traMADol 50 MG Tab PO PRN ×2 (11:56→18:15)
[2020-12-20] MEDS: atorvaSTATin 20 MG Tab PO SCH (21:14)
[2020-12-20] MEDS: Zolpidem 5 MG Tab PO PRN (22:32)
[2020-12-20] MEDS: MELATONIN 5 MG PO SCH (22:32)
[2020-12-21] MEDS: Acetaminophen 500 MG Tab PO SCH ×3 (06:27→22:08)
[2020-12-21] MEDS: predniSONE 5 MG Tab PO SCH (09:07)
[2020-12-21] MEDS: Aspirin 81 MG Tab.EC PO SCH (09:07)
[2020-12-21] MEDS: Metoprolol Tartrate 50 MG Tab PO SCH ×2 (09:08→20:52)
[2020-12-21] MEDS: Lidocaine 5% 700 MG Patch TOP SCH (09:08)
[2020-12-21] MEDS: amLODIPine 5 MG Tab PO SCH (09:09)
[2020-12-21] MEDS: Enoxaparin 40 MG/0.4 ML Syringe SUBCUT SCH (09:09)
[2020-12-21] MEDS: Famotidine 20 MG Tab PO SCH ×2 (09:12→20:51)
[2020-12-21] MEDS: Clopidogrel 75 MG Tab PO SCH (09:12)
[2020-12-21] MEDS: Multivitamins, Therapeutic with Minerals Tab PO SCH (09:13)
[2020-12-21] MEDS: MAGNESIUM OXIDE 400 MG PO SCH ×2 (09:14→20:55)
[2020-12-21] MEDS: TACROLIMUS 1 MG PO SCH ×2 (09:16→20:58)
[2020-12-21] MEDS: MYCOPHENOLATE MOFETIL 500 MG PO SCH ×2 (09:18→20:57)
[2020-12-21] MEDS: TETRAHYDROZOLINE HCL EYEBOTH PRN (09:19)
[2020-12-21] MEDS: traMADol 50 MG Tab PO PRN ×2 (10:46→22:10)
--- NOTE | 2020-12-21 15:12 | CR ---
EXAMINATION: Chest 1V Frontal SEX: Male AGE: 70 years CLINICAL HISTORY: 70-year-old male with shortness of breath and dizziness. Comparison CXR September 2014. Interpretation: Sternotomy wires. Chronic asymmetric elevation right hemidiaphragm with ipsilateral basilar atelectasis. Lingular scarring. Atheromatous calcifications axillary and subclavian arteries, bilaterally. Normal cardiac silhouette (size and configuration). No pulmonary vascular congestion, cephalization of flow, alveolar edema or pleural effusion. No lung mass or hilar lymphadenopathy. No alveolar pneumonia, lobar collapse, or peripheral "groundglass" interstitial lung densities. No pneumothorax or pneumomediastinum. No free subdiaphragmatic air. CONCLUSION: Evidence of previous surgery. No heart failure, lung malignancy, or lobar pneumonia.
[2020-12-21] MEDS: atorvaSTATin 20 MG Tab PO SCH (20:51)
[2020-12-21] MEDS: MELATONIN 5 MG PO SCH (22:07)
[2020-12-21] MEDS: Zolpidem 5 MG Tab PO PRN (22:08)
[2020-12-22] MEDS: Acetaminophen 500 MG Tab PO SCH ×3 (06:21→21:22)
[2020-12-22] MEDS: traMADol 50 MG Tab PO PRN (10:30)
[2020-12-22] MEDS: predniSONE 5 MG Tab PO SCH (11:49)
[2020-12-22] MEDS: CINACALCET 30 MG PO SCH (11:49)
[2020-12-22] MEDS: Lidocaine 5% 700 MG Patch TOP SCH (11:50)
[2020-12-22] MEDS: Metoprolol Tartrate 50 MG Tab PO SCH ×2 (11:50→21:16)
[2020-12-22] MEDS: Aspirin 81 MG Tab.EC PO SCH (11:50)
[2020-12-22] MEDS: Famotidine 20 MG Tab PO SCH ×2 (11:51→21:14)
[2020-12-22] MEDS: Enoxaparin 40 MG/0.4 ML Syringe SUBCUT SCH (11:51)
[2020-12-22] MEDS: amLODIPine 5 MG Tab PO SCH (11:51)
[2020-12-22] MEDS: Allopurinol 100 MG Tab PO SCH (11:52)
[2020-12-22] MEDS: TACROLIMUS 1 MG PO SCH ×2 (11:52→21:17)
[2020-12-22] MEDS: MAGNESIUM OXIDE 400 MG PO SCH ×2 (11:52→21:19)
[2020-12-22] MEDS: Clopidogrel 75 MG Tab PO SCH (11:52)
[2020-12-22] MEDS: MYCOPHENOLATE MOFETIL 500 MG PO SCH ×2 (11:52→21:18)
[2020-12-22] MEDS: Multivitamins, Therapeutic with Minerals Tab PO SCH (11:52)
[2020-12-22] MEDS: atorvaSTATin 20 MG Tab PO SCH (21:13)
[2020-12-22] MEDS: MELATONIN 5 MG PO SCH (21:19)
[2020-12-22] MEDS: Zolpidem 5 MG Tab PO PRN (21:21)
[2020-12-23] MEDS: Acetaminophen 500 MG Tab PO SCH ×3 (06:11→22:38)
[2020-12-23] MEDS: amLODIPine 5 MG Tab PO SCH ×2 (07:30→10:29)
[2020-12-23] MEDS: Metoprolol Tartrate 50 MG Tab PO SCH ×3 (07:30→21:37)
[2020-12-23] MEDS: Famotidine 20 MG Tab PO SCH ×3 (07:30→21:37)
[2020-12-23] MEDS: Multivitamins, Therapeutic with Minerals Tab PO SCH ×2 (07:30→10:29)
[2020-12-23] MEDS: Aspirin 81 MG Tab.EC PO SCH ×2 (07:31→10:28)
[2020-12-23] MEDS: predniSONE 5 MG Tab PO SCH (07:31)
[2020-12-23] MEDS: Clopidogrel 75 MG Tab PO SCH ×2 (07:32→10:30)
[2020-12-23] MEDS: MAGNESIUM OXIDE 400 MG PO SCH ×3 (07:35→21:43)
[2020-12-23] MEDS: TACROLIMUS 1 MG PO SCH ×3 (07:35→21:39)
[2020-12-23] MEDS: MYCOPHENOLATE MOFETIL 500 MG PO SCH ×3 (07:36→21:40)
[2020-12-23] MEDS: Enoxaparin 40 MG/0.4 ML Syringe SUBCUT SCH ×2 (07:37→10:28)
[2020-12-23] MEDS: Lidocaine 5% 700 MG Patch TOP SCH ×2 (07:38→10:28)
[2020-12-23] MEDS: traMADol 50 MG Tab PO PRN ×2 (08:09→15:03)
[2020-12-23] MEDS: atorvaSTATin 20 MG Tab PO SCH (21:38)
[2020-12-23] MEDS: MELATONIN 5 MG PO SCH (21:45)
[2020-12-23] MEDS: Zolpidem 5 MG Tab PO PRN (22:38)
[2020-12-24] MEDS: Acetaminophen 500 MG Tab PO SCH ×3 (06:37→21:06)
[2020-12-24] MEDS: Clopidogrel 75 MG Tab PO SCH (09:03)
[2020-12-24] MEDS: Allopurinol 100 MG Tab PO SCH (09:03)
[2020-12-24] MEDS: Famotidine 20 MG Tab PO SCH ×2 (09:03→21:07)
[2020-12-24] MEDS: amLODIPine 5 MG Tab PO SCH (09:03)
[2020-12-24] MEDS: Multivitamins, Therapeutic with Minerals Tab PO SCH (09:03)
[2020-12-24] MEDS: Aspirin 81 MG Tab.EC PO SCH (09:03)
[2020-12-24] MEDS: predniSONE 5 MG Tab PO SCH (09:03)
[2020-12-24] MEDS: Metoprolol Tartrate 50 MG Tab PO SCH ×2 (09:06→21:06)
[2020-12-24] MEDS: MAGNESIUM OXIDE 400 MG PO SCH ×2 (09:07→21:08)
[2020-12-24] MEDS: TACROLIMUS 1 MG PO SCH ×2 (09:08→22:35)
[2020-12-24] MEDS: CINACALCET 30 MG PO SCH (09:08)
[2020-12-24] MEDS: Enoxaparin 40 MG/0.4 ML Syringe SUBCUT SCH (09:09)
[2020-12-24] MEDS: MYCOPHENOLATE MOFETIL 500 MG PO SCH ×2 (09:16→22:34)
[2020-12-24] MEDS: Lidocaine 5% 700 MG Patch TOP SCH (09:16)
[2020-12-24] MEDS: traMADol 50 MG Tab PO PRN ×2 (10:26→14:53)
[2020-12-24] MEDS: atorvaSTATin 20 MG Tab PO SCH (21:07)
[2020-12-24] MEDS: MAGNESIUM OXIDE 200 MG PO SCH (21:08)
[2020-12-24] MEDS: Zolpidem 5 MG Tab PO PRN (22:32)
[2020-12-24] MEDS: MELATONIN 5 MG PO SCH (22:35)
[2020-12-25] MEDS: Acetaminophen 500 MG Tab PO SCH ×3 (06:10→21:23)
[2020-12-25] MEDS: Aspirin 81 MG Tab.EC PO SCH (08:44)
[2020-12-25] MEDS: Multivitamins, Therapeutic with Minerals Tab PO SCH (08:44)
[2020-12-25] MEDS: Metoprolol Tartrate 50 MG Tab PO SCH ×2 (08:44→21:16)
[2020-12-25] MEDS: Famotidine 20 MG Tab PO SCH ×2 (08:44→21:16)
[2020-12-25] MEDS: Clopidogrel 75 MG Tab PO SCH (08:44)
[2020-12-25] MEDS: predniSONE 5 MG Tab PO SCH (08:44)
[2020-12-25] MEDS: amLODIPine 5 MG Tab PO SCH (08:45)
[2020-12-25] MEDS: Enoxaparin 40 MG/0.4 ML Syringe SUBCUT SCH (08:46)
[2020-12-25] MEDS: MAGNESIUM OXIDE 400 MG PO SCH ×2 (08:46→21:17)
[2020-12-25] MEDS: MAGNESIUM OXIDE 200 MG PO SCH ×2 (08:47→21:17)
[2020-12-25] MEDS: MYCOPHENOLATE MOFETIL 500 MG PO SCH ×2 (08:48→21:22)
[2020-12-25] MEDS: TACROLIMUS 1 MG PO SCH ×2 (08:49→21:23)
[2020-12-25] MEDS: Lidocaine 5% 700 MG Patch TOP SCH (08:50)
[2020-12-25] MEDS: traMADol 50 MG Tab PO PRN (09:03)
[2020-12-25] MEDS: atorvaSTATin 20 MG Tab PO SCH (21:16)
[2020-12-25] MEDS: MELATONIN 5 MG PO SCH (21:18)
[2020-12-25] MEDS: Zolpidem 5 MG Tab PO PRN (21:23)
[2020-12-26] MEDS: Acetaminophen 500 MG Tab PO SCH ×3 (05:20→22:52)
[2020-12-26] MEDS: Multivitamins, Therapeutic with Minerals Tab PO SCH (08:51)
[2020-12-26] MEDS: Famotidine 20 MG Tab PO SCH ×2 (08:52→22:51)
[2020-12-26] MEDS: predniSONE 5 MG Tab PO SCH (08:52)
[2020-12-26] MEDS: Allopurinol 100 MG Tab PO SCH (08:52)
[2020-12-26] MEDS: Aspirin 81 MG Tab.EC PO SCH (08:52)
[2020-12-26] MEDS: Clopidogrel 75 MG Tab PO SCH (08:52)
[2020-12-26] MEDS: Metoprolol Tartrate 50 MG Tab PO SCH ×2 (08:52→22:52)
[2020-12-26] MEDS: amLODIPine 5 MG Tab PO SCH (08:53)
[2020-12-26] MEDS: traMADol 50 MG Tab PO PRN (08:54)
[2020-12-26] MEDS: TACROLIMUS 1 MG PO SCH ×2 (08:56→23:00)
[2020-12-26] MEDS: MAGNESIUM OXIDE 400 MG PO SCH ×2 (08:57→22:54)
[2020-12-26] MEDS: CINACALCET 30 MG PO SCH (08:57)
[2020-12-26] MEDS: MYCOPHENOLATE MOFETIL 500 MG PO SCH ×2 (08:58→22:59)
[2020-12-26] MEDS: MAGNESIUM OXIDE 200 MG PO SCH ×2 (08:58→22:54)
[2020-12-26] MEDS: Enoxaparin 40 MG/0.4 ML Syringe SUBCUT SCH (08:59)
[2020-12-26] MEDS: Lidocaine 5% 700 MG Patch TOP SCH (09:00)
[2020-12-26] MEDS: Ascorbic Acid 500 MG Tab PO SCH (12:29)
[2020-12-26 12:30] LABS: ANION GAP 14.2 mEq/L (7-13); CHLORIDE,CL 102 mmol/L (98-107); SODIUM,NA 141 mmol/L (136-145)
[2020-12-26] MEDS: Ferrous Sulfate 325 MG Tab PO SCH (17:40)
[2020-12-26] MEDS: Calcitonin (Salmon) Nasal Spray 3.7 ML Bottle NAS SCH (17:40)
[2020-12-26] MEDS: Sodium Chloride 0.9% 1,000 ML IV SCH (17:40)
[2020-12-26] MEDS: atorvaSTATin 20 MG Tab PO SCH (22:51)
[2020-12-26] MEDS: MELATONIN 5 MG PO SCH (22:55)
[2020-12-26] MEDS: Zolpidem 5 MG Tab PO PRN (23:00)
[2020-12-27] MEDS: Sodium Chloride 0.9% 1,000 ML IV SCH ×3 (04:02→22:28)
[2020-12-27] MEDS: Acetaminophen 500 MG Tab PO SCH (06:23)
[2020-12-27 07:14] LABS: ANION GAP 13.3 mEq/L (7-13)
--- NOTE | 2020-12-27 08:12 | PCM.SN.2 ---
- Free Text/Narrative Note: START OF DOCTOR RAMAN PROGRESS NOTE Subjective: At the present time the patient complains of 2 out of 10 left hip pain. He complains of chronic dyspnea but states that he is at his baseline. He denies fever, rigors, nausea, vomiting, cough, wheeze, abdominal pain, chest pain. He states that he has a decreased appetite. He states that he is having regular bowel movements. He indicates that he has been ambulating with the assistance of physical therapy. I explained to the patient his current medical condition and plan of care and I have answered all of his questions Objective: General: -Alert -No acute distress -No dyspnea -No tachypnea Heart: -Regular rate -Regular rhythm -No murmurs -No gallops -No rubs Lungs: -No wheeze -No rhonchi -No rales Abdomen: -Normal bowel sounds in all four quadrants -No rebound -No guarding -No tenderness Extremities: -2/4 pulse in all four extremities -No clubbing -No cyanosis -No edema Additional Details / Additional Findings / Exceptions / Miscellaneous: The patient has 5 out of 5 bilateral plantar and dorsiflexion strength. Sensorium of bilateral lower extremities are equal and intact Pertinent Laboratory Results / Pertinent Radiology Results / Pertinent Diagnostic Results / Pertinent Vital Signs: Blood pressure 166/78 however this is an isolated elevated reading, creatinine 1.45, calcium 12.32 Assessment / Plan: Swing bed status for recent left hip fracture, status post gamma nail. Lidocaine 5% patch to be applied to affected area for 12 hours daily. We will provide as needed analgesia. Continue physical therapy and Occupational Therapy Macrocytic anemia/iron deficiency anemia. Monitor hemoglobin levels intermittently. Ferrous sulfate 325 mg p.o. twice daily plus vitamin C 500 mg p.o. daily Thrombocytosis. Will monitor platelet count intermittently History of renal cell carcinoma, status post partial left nephrectomy. Outpatient follow-up with hematology/oncology upon discharge Acute renal insufficiency. Will monitor creatinine levels intermittently. IV normal saline at 100 mL/h Status post renal transplant. Prednisone 40 mg p.o. daily which will be tapered to his usual dose of 5 mg p.o. daily upon normalization of serum calcium levels plus Sensipar 30 mg p.o. q. Sunday, Sunday, Sunday, Sunday plus mycophenolate mofetil 1000 mg p.o. every 12 hours plus tacrolimus 1 mg p.o. twice daily Hyperparathyroidism. Sensipar 30 mg p.o. q. Sunday, Sunday, Sunday, Sunday Insomnia. Melatonin 5 mg p.o. nightly Gout. Allopurinol 100 mg p.o. every 48 hours Hypertension. Norvasc 2.5 mg p.o. daily plus metoprolol 50 mg p.o. twice daily Hyperlipidemia. Lipitor 40 mg p.o. nightly GERD. Famotidine 20 mg p.o. twice daily Erectile dysfunction History of DVT Diverticulosis BPH History of prostate cancer, status post prostatectomy. The patient indicates that he is in remission and is no longer being monitored for this medical condition by . History of CVA. Aspirin 81 mg p.o. daily plus Lipitor 40 mg p.o. nightly plus Plavix and 5 mg p.o. daily Coronary artery disease, status post CABG. Aspirin 81 mg p.o. daily plus Lipitor 40 mg p.o. nightly plus Plavix and 5 mg p.o. daily plus metoprolol 50 mg p.o. twice daily CHF, ejection fraction 50 to 55% with grade 1 diastolic dysfunction. Metoprolol 50 mg p.o. twice daily Peripheral vascular disease. Aspirin 81 mg p.o. daily plus Lipitor 40 mg p.o. nightly plus Plavix and 5 mg p.o. daily Hypercalcemia. Will monitor calcium levels intermittently. IV normal saline 100 mL/h plus Miacalcin nasal: 1 spray in 1 nostril daily plus prednisone 40 mg p.o. daily which will be tapered to his usual renal transplant dose of 5 mg p.o. daily. Currently pendin, 25 hydroxy vitamin D level, 25 hydroxy vitamin D level, KIRK level, Bence-Steiner protein, PTH, PTH related peptide, ionized calcium DVT prophylaxis. Lovenox 40 mg subcutaneously daily Disposition: END OF DOCTOR EMAMIS PROGRESS NOTE
[2020-12-27] MEDS: amLODIPine 5 MG Tab PO SCH (08:56)
[2020-12-27] MEDS: Ferrous Sulfate 325 MG Tab PO SCH ×2 (08:57→17:46)
[2020-12-27] MEDS: Ascorbic Acid 500 MG Tab PO SCH (08:57)
[2020-12-27] MEDS: Metoprolol Tartrate 50 MG Tab PO SCH ×2 (08:57→21:01)
[2020-12-27] MEDS: Famotidine 20 MG Tab PO SCH ×2 (08:57→21:00)
[2020-12-27] MEDS: Clopidogrel 75 MG Tab PO SCH (08:57)
[2020-12-27] MEDS: Multivitamins, Therapeutic with Minerals Tab PO SCH (08:57)
[2020-12-27] MEDS: Aspirin 81 MG Tab.EC PO SCH (08:58)
[2020-12-27] MEDS: CINACALCET 30 MG PO SCH (08:59)
[2020-12-27] MEDS: Lidocaine 5% 700 MG Patch TOP SCH (09:00)
[2020-12-27] MEDS: Enoxaparin 40 MG/0.4 ML Syringe SUBCUT SCH (09:08)
[2020-12-27] MEDS: MAGNESIUM OXIDE 400 MG PO SCH ×2 (09:09→21:02)
[2020-12-27] MEDS: MAGNESIUM OXIDE 200 MG PO SCH ×2 (09:09→21:01)
[2020-12-27] MEDS: TACROLIMUS 1 MG PO SCH ×2 (09:11→21:03)
[2020-12-27] MEDS: MYCOPHENOLATE MOFETIL 500 MG PO SCH ×2 (09:12→21:02)
[2020-12-27] MEDS: Calcitonin (Salmon) Nasal Spray 3.7 ML Bottle NAS SCH (09:14)
[2020-12-27] MEDS: predniSONE 20 MG Tab PO SCH (09:17)
[2020-12-27] MEDS: TETRAHYDROZOLINE HCL EYEBOTH PRN ×2 (09:17→22:31)
[2020-12-27] MEDS: traMADol 50 MG Tab PO PRN ×2 (13:40→22:22)
[2020-12-27] MEDS: atorvaSTATin 20 MG Tab PO SCH (21:00)
[2020-12-27] MEDS: Zolpidem 5 MG Tab PO PRN (22:21)
[2020-12-27] MEDS: MELATONIN 5 MG PO SCH (22:23)
[2020-12-28] MEDS: Clopidogrel 75 MG Tab PO SCH (08:56)
[2020-12-28] MEDS: predniSONE 20 MG Tab PO SCH (08:56)
[2020-12-28] MEDS: Multivitamins, Therapeutic with Minerals Tab PO SCH (08:57)
[2020-12-28] MEDS: Famotidine 20 MG Tab PO SCH ×2 (08:57→21:07)
[2020-12-28] MEDS: Aspirin 81 MG Tab.EC PO SCH (08:57)
[2020-12-28] MEDS: amLODIPine 5 MG Tab PO SCH (08:57)
[2020-12-28] MEDS: Metoprolol Tartrate 50 MG Tab PO SCH ×2 (08:59→21:07)
[2020-12-28] MEDS: Ascorbic Acid 500 MG Tab PO SCH (09:00)
[2020-12-28] MEDS: traMADol 50 MG Tab PO PRN ×2 (09:00→13:34)
[2020-12-28] MEDS: Allopurinol 100 MG Tab PO SCH (09:00)
[2020-12-28] MEDS: MAGNESIUM OXIDE 200 MG PO SCH ×2 (09:02→21:04)
[2020-12-28] MEDS: MYCOPHENOLATE MOFETIL 500 MG PO SCH ×2 (09:03→21:08)
[2020-12-28] MEDS: MAGNESIUM OXIDE 400 MG PO SCH ×2 (09:04→21:03)
[2020-12-28] MEDS: Lidocaine 5% 700 MG Patch TOP SCH (09:05)
[2020-12-28] MEDS: Enoxaparin 40 MG/0.4 ML Syringe SUBCUT SCH (09:05)
[2020-12-28] MEDS: Calcitonin (Salmon) Nasal Spray 3.7 ML Bottle NAS SCH (09:06)
[2020-12-28] MEDS: TACROLIMUS 1 MG PO SCH ×2 (09:07→21:05)
[2020-12-28] MEDS ORDERED: Zoledronic Acid 4 MG in Sodium Chloride 0.9% 100 ML IV ONE (10:00)
[2020-12-28] MEDS: Ferrous Sulfate 325 MG Tab PO SCH ×2 (11:25→17:25)
[2020-12-28] MEDS: MELATONIN 5 MG PO SCH (21:05)
[2020-12-28] MEDS: atorvaSTATin 20 MG Tab PO SCH (21:07)
[2020-12-28] MEDS: Zolpidem 5 MG Tab PO PRN (21:08)
[2020-12-29 07:13] LABS: ANION GAP 11.9 mEq/L (7-13)
[2020-12-29] MEDS: CINACALCET 30 MG PO SCH (09:27)
[2020-12-29] MEDS: MAGNESIUM OXIDE 400 MG PO SCH ×2 (09:27→21:44)
[2020-12-29] MEDS: MAGNESIUM OXIDE 200 MG PO SCH ×2 (09:28→21:44)
[2020-12-29] MEDS: MYCOPHENOLATE MOFETIL 500 MG PO SCH ×2 (09:28→21:44)
[2020-12-29] MEDS: Aspirin 81 MG Tab.EC PO SCH (09:29)
[2020-12-29] MEDS: TACROLIMUS 1 MG PO SCH ×2 (09:29→21:45)
[2020-12-29] MEDS: Multivitamins, Therapeutic with Minerals Tab PO SCH (09:29)
[2020-12-29] MEDS: predniSONE 20 MG Tab PO SCH (09:29)
[2020-12-29] MEDS: Famotidine 20 MG Tab PO SCH ×2 (09:30→21:43)
[2020-12-29] MEDS: Ferrous Sulfate 325 MG Tab PO SCH ×2 (09:30→17:43)
[2020-12-29] MEDS: hydrALAZINE 25 MG Tab PO SCH ×2 (09:31→16:18)
[2020-12-29] MEDS: Clopidogrel 75 MG Tab PO SCH (09:31)
[2020-12-29] MEDS: Ascorbic Acid 500 MG Tab PO SCH (09:31)
[2020-12-29] MEDS: amLODIPine 5 MG Tab PO SCH (09:32)
[2020-12-29] MEDS: Metoprolol Tartrate 50 MG Tab PO SCH ×2 (09:33→21:43)
[2020-12-29] MEDS: traMADol 50 MG Tab PO PRN ×2 (09:34→21:57)
[2020-12-29] MEDS: Enoxaparin 40 MG/0.4 ML Syringe SUBCUT SCH (09:36)
[2020-12-29] MEDS: Lidocaine 5% 700 MG Patch TOP SCH (09:37)
[2020-12-29] MEDS: Calcitonin (Salmon) Nasal Spray 3.7 ML Bottle NAS SCH (11:01)
[2020-12-29] MEDS: atorvaSTATin 20 MG Tab PO SCH (21:43)
[2020-12-29] MEDS: MELATONIN 5 MG PO SCH (21:45)
[2020-12-29] MEDS: Zolpidem 5 MG Tab PO PRN (21:58)
[2020-12-30] MEDS: hydrALAZINE 25 MG Tab PO SCH ×4 (00:10→23:44)
[2020-12-30 06:58] LABS: ANION GAP 11.5 mEq/L (7-13)
[2020-12-30] MEDS: Lidocaine 5% 700 MG Patch TOP SCH (09:13)
[2020-12-30] MEDS: Enoxaparin 40 MG/0.4 ML Syringe SUBCUT SCH (09:14)
[2020-12-30] MEDS: predniSONE 20 MG Tab PO SCH (09:14)
[2020-12-30] MEDS: Allopurinol 100 MG Tab PO SCH (09:15)
[2020-12-30] MEDS: Clopidogrel 75 MG Tab PO SCH (09:15)
[2020-12-30] MEDS: Multivitamins, Therapeutic with Minerals Tab PO SCH (09:15)
[2020-12-30] MEDS: Famotidine 20 MG Tab PO SCH ×2 (09:15→21:15)
[2020-12-30] MEDS: Ferrous Sulfate 325 MG Tab PO SCH ×2 (09:15→16:59)
[2020-12-30] MEDS: amLODIPine 5 MG Tab PO SCH (09:15)
[2020-12-30] MEDS: Ascorbic Acid 500 MG Tab PO SCH (09:15)
[2020-12-30] MEDS: Metoprolol Tartrate 50 MG Tab PO SCH ×2 (09:16→21:15)
[2020-12-30] MEDS: Aspirin 81 MG Tab.EC PO SCH (09:16)
[2020-12-30] MEDS: TACROLIMUS 1 MG PO SCH ×2 (09:21→21:19)
[2020-12-30] MEDS: MYCOPHENOLATE MOFETIL 500 MG PO SCH ×2 (09:24→21:18)
[2020-12-30] MEDS: MAGNESIUM OXIDE 400 MG PO SCH ×2 (09:24→21:19)
[2020-12-30] MEDS: MAGNESIUM OXIDE 200 MG PO SCH ×2 (09:25→21:19)
[2020-12-30] MEDS: Calcitonin (Salmon) Nasal Spray 3.7 ML Bottle NAS SCH (09:31)
[2020-12-30] MEDS: traMADol 50 MG Tab PO PRN ×2 (13:03→21:16)
[2020-12-30] MEDS: atorvaSTATin 20 MG Tab PO SCH (21:14)
[2020-12-30] MEDS: Zolpidem 5 MG Tab PO PRN (21:18)
[2020-12-30] MEDS: MELATONIN 5 MG PO SCH (21:19)
--- NOTE | 2020-12-31 08:58 | PCM.SN.2 ---
- Free Text/Narrative Note: START OF DOCTOR EMAMIS DISCHARGE SUMMARY Date of Admission: December 13, 2020 Date of Discharge: 8:54 AM on December 31, 2020 Primary Diagnosis: Status post swing bed status for recent left hip fracture, status post gamma nailing Secondary Diagnosis: Macrocytic anemia/iron deficiency anemia Thrombocytosis History of renal cell carcinoma, status post partial left nephrectomy Acute renal insufficiency Status post renal transplant Hyperparathyroidism Insomnia Gout Hypertension Hyperlipidemia GERD Erectile dysfunction History of DVT Diverticulosis BPH History of prostate cancer, status post prostatectomy. Patient indicates that he is in remission and is no longer being monitored for this medical condition by History of CVA Coronary artery disease, status post CABG CHF, ejection fraction 50 to 55% with grade 1 diastolic dysfunction Peripheral vascular disease Hypercalcemia Consultations: None Condition on Discharge: Stable Disposition: The patient will be vies follow-up with his primary care physician or provider 5 to 7 days post discharge for posthospitalization evaluation The patient is advised to follow-up with cardiology as directed for scheduled intervention The patient is advised to follow-up with hematology/oncology within 2 weeks of discharge or as directed for his history of renal cell carcinoma The patient is advised to follow-up with his transplant team as directed The patient is advised follow-up with endocrinology within 2 weeks of discharge for diagnosis hypercalcemia The patient will require home health for physical therapy home exercises and continue strengthening Discharge Medications: Mycophenolate mofetil 1000 mg p.o. every 12 hours Multivitamin 1 tab p.o. daily Metoprolol 50 mg p.o. twice daily Melatonin 10 mg p.o. nightly Magnesium oxide 600 mg p.o. twice daily Lidocaine 5% patch to be applied to affected area for 12 hours daily Hydralazine 50 mg p.o. every 8 hours Ferrous sulfate 305 mg p.o. twice daily Pepcid 20 mg p.o. twice daily Plavix 75 mg p.o. daily Sensipar 30 mg p.o. on Sunday, Sunday, Sunday, and Sunday Lipitor 40 mg p.o. nightly Viagra 50 mg p.o. daily as needed sexual activity Ambien 10 mg p.o. nightly as needed insomnia Ultram 50 mg p.o. every 8 hours as needed pain Tacrolimus 1 mg p.o. twice daily Aspirin 81 mg p.o. daily Vitamin C 500 mg p.o. daily Norvasc 2.5 mg p.o. daily Allopurinol 100 mg p.o. every 48 hours Miacalcin nasal spray: 1 puff in 1 nostril daily Tetrahydrozoline 1 drop in both eyes 4 times daily as needed unspecified reason Prednisone 5 mg p.o.: 30 mg daily x3 days then 20 mg daily x3 days then 10 mg daily x3 days then 5 mg daily indefinitely. Quantity sufficient. 0 refills END OF DOCTOR EMAMIS DISCHARGE SUMMARY
[2020-12-31] MEDS: MAGNESIUM OXIDE 400 MG PO SCH (09:33)
[2020-12-31] MEDS: MAGNESIUM OXIDE 200 MG PO SCH (09:33)
[2020-12-31] MEDS: MYCOPHENOLATE MOFETIL 500 MG PO SCH (09:33)
[2020-12-31] MEDS: hydrALAZINE 25 MG Tab PO SCH (09:34)
[2020-12-31] MEDS: Aspirin 81 MG Tab.EC PO SCH (09:35)
[2020-12-31] MEDS: TACROLIMUS 1 MG PO SCH (09:35)
[2020-12-31] MEDS: Ferrous Sulfate 325 MG Tab PO SCH (09:35)
[2020-12-31] MEDS: Famotidine 20 MG Tab PO SCH (09:35)
[2020-12-31] MEDS: Multivitamins, Therapeutic with Minerals Tab PO SCH (09:36)
[2020-12-31] MEDS: traMADol 50 MG Tab PO PRN (09:36)
[2020-12-31] MEDS: Clopidogrel 75 MG Tab PO SCH (09:36)
[2020-12-31] MEDS: Ascorbic Acid 500 MG Tab PO SCH (09:36)
[2020-12-31] MEDS: predniSONE 20 MG Tab PO SCH (09:37)
[2020-12-31] MEDS: Lidocaine 5% 700 MG Patch TOP SCH (09:38)
[2020-12-31] MEDS: CINACALCET 30 MG PO SCH (09:38)
[2020-12-31] MEDS: Enoxaparin 40 MG/0.4 ML Syringe SUBCUT SCH (09:38)
[2020-12-31 09:41] VITALS: BP 94/57
[2020-12-31 09:43] VITALS: PULSE 71
[2020-12-31] MEDS: amLODIPine 5 MG Tab PO SCH (11:31)
[2020-12-31] MEDS: Metoprolol Tartrate 50 MG Tab PO SCH (11:31)
[2020-12-31] MEDS: Calcitonin (Salmon) Nasal Spray 3.7 ML Bottle NAS SCH (11:32)
== END 2020-12-31 11:00 | disposition home or self-care (01) | DRG 560 ==
LOC: DL.MS 13:27
PROVIDERS: ADMIT Internal Medicine; ATTEND Internal Medicine
DX: S72.002D Fracture of unspecified part of neck of left femur, subsequent encounter for closed fracture with routine healing (principal); Z94.0 Kidney transplant status; I50.32 Chronic diastolic (congestive) heart failure; I13.0 Hypertensive heart and chronic kidney disease with heart failure and stage 1 through stage 4 chronic kidney disease, or unspecified chronic kidney disease; D50.9 Iron deficiency anemia, unspecified; D47.3 Essential (hemorrhagic) thrombocythemia; E21.3 Hyperparathyroidism, unspecified; G47.00 Insomnia, unspecified; M10.9 Gout, unspecified; E78.5 Hyperlipidemia, unspecified; K21.9 Gastro-esophageal reflux disease without esophagitis; N52.9 Male erectile dysfunction, unspecified; K57.90 Diverticulosis of intestine, part unspecified, without perforation or abscess without bleeding; N40.0 Benign prostatic hyperplasia without lower urinary tract symptoms; I25.10 Atherosclerotic heart disease of native coronary artery without angina pectoris; E78.00 Pure hypercholesterolemia, unspecified; D63.1 Anemia in chronic kidney disease; N18.9 Chronic kidney disease, unspecified; E83.52 Hypercalcemia; I73.9 Peripheral vascular disease, unspecified; Z85.528 Personal history of other malignant neoplasm of kidney; Z86.718 Personal history of other venous thrombosis and embolism; Z86.73 Personal history of transient ischemic attack (TIA), and cerebral infarction without residual deficits; Z95.1 Presence of aortocoronary bypass graft; Z88.1 Allergy status to other antibiotic agents; Z88.8 Allergy status to other drugs, medicaments and biological substances; Z79.52 Long term (current) use of systemic steroids; Z79.82 Long term (current) use of aspirin; Z79.899 Other long term (current) drug therapy; Z98.49 Cataract extraction status, unspecified eye; Z87.891 Personal history of nicotine dependence
CPT/HCPCS: 36415; 71045; 80048; 80053; 80197; 82164; 82272; 82306; 82330; 82397; 82607; 82728; 82746; 83540; 83550; 83735; 83970; 84100; 84439; 84443; 85025; 93005; 97110-GO; 97110-GP; 97116-GP; 97161-GP; 97166-GO; 97530-GO; 97535-GO; A9270-GY; J1650; J3489; J7030; J7512

== ENCOUNTER 2022-10-21 12:03 | Emergency (ER) | payer MEDICARE, BC, MEDICAID ==
[2022-10-21] MEDS ORDERED: Ondansetron 4 MG Tab.DIS PO ONE (12:04)
[2022-10-21] MEDS ORDERED: Sodium Chloride 0.9% 1,000 ML IV SCH (13:00)
[2022-10-21 13:27] LABS: CHLORIDE,CL 102 mmol/L (98-107); SODIUM,NA 137 mmol/L (136-145)
[2022-10-21 13:29] LABS: ESTIMATED GFR 35 mL/min (>=60)
[2022-10-21 13:40] VITALS: BP 124/53; PULSE 67
[2022-10-21] MEDS ORDERED: Ondansetron 4 MG Tab.DIS ONE (15:36)
== END 2022-10-21 15:41 | disposition home or self-care (01) ==
LOC: DL.ED 12:03
DX: R53.1 Weakness (principal); U09.9 Post COVID-19 condition, unspecified; I25.10 Atherosclerotic heart disease of native coronary artery without angina pectoris; E78.00 Pure hypercholesterolemia, unspecified; I10 Essential (primary) hypertension; N40.0 Benign prostatic hyperplasia without lower urinary tract symptoms; M10.9 Gout, unspecified; Z88.5 Allergy status to narcotic agent; Z88.1 Allergy status to other antibiotic agents; Z79.899 Other long term (current) drug therapy; Z79.82 Long term (current) use of aspirin; Z86.73 Personal history of transient ischemic attack (TIA), and cerebral infarction without residual deficits
CPT/HCPCS: 36415; 71045; 80053; 81001; 83605; 83735; 83880; 84484; 85025; 86140; 96360; 96361; 99284; 99285-25; A9270-GY; J7030

== ENCOUNTER 2023-07-01 09:01 | Inpatient (IN) | payer MEDICARE, BC, MEDICAID ==
[2023-07-01] MEDS ORDERED: Sodium Chloride 0.9% 10 ML Syringe FLUSH PRN (09:38)
[2023-07-01 09:57] LABS: BASOPHILS PERCENT AUTO 0.1 % (0.0-1.0); HEMATOCRIT 42.1 % (40.0-54.0); HEMOGLOBIN 14.2 g/dL (14.0-18.0); LYMPHOCYTES PERCENT AUTO 3.9 % (20.5-50.1); MEAN CORPUSCULAR HEMOGLOBIN 33.4 pg (27.0-34.0); MEAN CORPUSCULAR HGB CONC 33.7 g/dL (33.0-35.0); MEAN CORPUSCULAR VOLUME 99.1 fL (80-100); MONOCYTES PERCENT AUTO 11.9 % (2-8); NEUTROPHILS PERCENT AUTO 84.1 % (42.2-75.2); PLATELET COUNT,PLT 249 10^3/uL (150-450); RED BLOOD CELL COUNT 4.25 10^6/uL (4.6-6.2); WHITE BLOOD CELL COUNT,WBC 17.3 10^3/uL (5.0-10.0)
[2023-07-01 10:19] LABS: A/G RATIO 0.9; ALBUMIN 3.6 g/dL (3.4-5.0); ANION GAP 11.9 mEq/L (7-13); BUN/CREATININE RATIO 13.9 (No establ ref range); CALCIUM 9.7 mg/dL (8.5-10.1); CREATININE 1.37 mg/dL (0.70-1.30); EST CRCL DRUG DOSING (CG) 49.58 mL/min; MAGNESIUM 1.9 mg/dL (1.8-2.4); PHOSPHORUS 2.6 mg/dL (2.6-4.7); POTASSIUM,K 4.9 mmol/L (3.5-5.1); PROTEIN TOTAL,TP 7.5 g/dL (6.4-8.2)
[2023-07-01 10:20] LABS: LACTIC ACID 1.9 mmol/L (0.4-2.0)
[2023-07-01 10:33] LABS: APPEARANCE,URINE CLEAR (CLEAR); BILIRUBIN,URINE NEGATIVE (NEGATIVE); COLOR,URINE YELLOW (YELLOW); GLUCOSE,URINE NEGATIVE (NEGATIVE); KETONES,URINE NEGATIVE (NEGATIVE); LEUKOCYTE ESTERASE,URINE NEGATIVE (NEGATIVE); NITRITE,URINE NEGATIVE (NEGATIVE); OCCULT BLOOD,URINE TRACE-INTACT (NEGATIVE); PROTEIN,URINE NEGATIVE (NEGATIVE); UROBILINOGEN,URINE 0.2 mg/dL (0.2-1.0)
[2023-07-01 10:35] LABS: INFLUENZA A NAA NEGATIVE (NEGATIVE); INFLUENZA B NAA NEGATIVE (NEGATIVE); RESPIRATORY SYNCYTIAL VIR NAA NEGATIVE (NEGATIVE)
[2023-07-01 10:38] LABS: CORONAVIRUS COVID-19 NAA POSITIVE (NEGATIVE)
[2023-07-01 10:51] LABS: BACTERIA,URINE NOT SEEN /HPF (0-FEW/HPF); EPITHELIAL CELLS,URINE RARE /HPF (NOT SEEN); MUCUS,URINE NOT SEEN /LPF (NOT SEEN); RBC,URINE 0-5 /HPF (0-5); WBC,URINE NOT SEEN /HPF (0-5/HPF)
[2023-07-01] MEDS ORDERED: Metoprolol Tartrate 5 MG/5 ML SDV IVPUSH PRN (12:48)
[2023-07-01] MEDS ORDERED: Zolpidem 5 MG Tab PO PRN (12:49)
[2023-07-01] MEDS ORDERED: Magnesium Hydroxide 400 MG/5 ML Susp 30 ML Cup PO PRN (12:49)
[2023-07-01] MEDS ORDERED: Naloxone 2 MG/2 ML Syringe IVPUSH PRN (12:49)
[2023-07-01] MEDS ORDERED: Acetaminophen/oxyCODONE 325-5 MG Tab PO PRN (12:49)
[2023-07-01] MEDS ORDERED: Albuterol/Ipratropium 3.0-0.5 MG/3 ML Neb Soln NEB PRN (12:49)
[2023-07-01] MEDS ORDERED: Polyethylene Glycol 3350 Powder 17 GM Packet PO PRN (12:49)
[2023-07-01] MEDS ORDERED: HYDROmorphone 0.5 MG/0.5 ML Syringe IVPUSH PRN (12:49)
[2023-07-01] MEDS ORDERED: Ondansetron 4 MG/2 ML SDV IVPUSH PRN (12:49)
[2023-07-01] MEDS ORDERED: Sennosides/Docusate Sodium 50-8.6 MG Tab PO PRN (12:49)
[2023-07-01] MEDS ORDERED: guaiFENesin/Dextromethorphan 100-10 MG/5 ML Soln 5 ML Cup PO PRN (13:00)
[2023-07-01] MEDS ORDERED: Azithromycin 500 MG in Sodium Chloride 0.9% 250 ML IV ONE (13:01)
[2023-07-01] MEDS ORDERED: cefTRIAXone 2 GM Vial IVPUSH ONE (13:03)
[2023-07-01] MEDS ORDERED: REMDESIVIR 200 MG in Sodium Chloride 0.9% 250 ML IV ONE (13:06)
[2023-07-01] MEDS ORDERED: 50% Dextrose in Water 50 ML Syringe IVPUSH PRN (13:11)
[2023-07-01] MEDS ORDERED: Glucagon,Human Recombinant 1 MG Vial IM PRN (13:11)
[2023-07-01] MEDS ORDERED: REMDESIVIR 200 MG ONE (13:51)
[2023-07-01] MEDS: Sodium Chloride 0.9% 1,000 ML IV SCH (14:32)
[2023-07-01] MEDS: hydrALAZINE 20 MG/ML SDV IVPUSH PRN (15:47)
[2023-07-01] MEDS: Acetaminophen 325 MG Tab PO PRN (15:50)
[2023-07-01] MEDS: Insulin Lispro 100 Units/ML 3 ML Vial SUBCUT SCH (17:31)
[2023-07-01] MEDS ORDERED: Polyvinyl Alcohol 1.4% Ophth Soln 15 ML Bottle EYEBOTH PRN ×2 (18:42→19:09)
[2023-07-01] MEDS ORDERED: TACROLIMUS PO SCH (21:00)
[2023-07-01] MEDS ORDERED: Non-Formulary Medication 1 Each (Tacrolimus [Prograf] 0.5 MG Cap) PO SCH (21:00)
[2023-07-01] MEDS: guaiFENesin 600 MG Tab.ER PO SCH (21:19)
[2023-07-01] MEDS: Dexamethasone 4 MG/ML SDV IVPUSH SCH (21:19)
[2023-07-01] MEDS: Mycophenolate Mofetil 250 MG Cap PO SCH (21:19)
[2023-07-01] MEDS: Saccharomyces Boulardii (Probiotic) 250 MG Cap PO SCH (21:19)
[2023-07-01] MEDS: Famotidine 20 MG Tab PO SCH (21:19)
[2023-07-01] MEDS: Melatonin 3 MG Tab PO SCH (21:20)
[2023-07-01] MEDS: Magnesium Oxide 400 MG Tab PO SCH (21:24)
[2023-07-01] MEDS: Metoprolol Tartrate 25 MG Tab PO SCH (21:24)
[2023-07-02] MEDS: Acetaminophen 325 MG Tab PO PRN (00:55)
[2023-07-02 06:23] LABS: BASOPHILS PERCENT AUTO 0.1 % (0.0-1.0); HEMATOCRIT 39.6 % (40.0-54.0); HEMOGLOBIN 13.4 g/dL (14.0-18.0); LYMPHOCYTES PERCENT AUTO 4.7 % (20.5-50.1); MEAN CORPUSCULAR HEMOGLOBIN 33.3 pg (27.0-34.0); MEAN CORPUSCULAR HGB CONC 33.8 g/dL (33.0-35.0); MEAN CORPUSCULAR VOLUME 98.3 fL (80-100); MONOCYTES PERCENT AUTO 7.1 % (2-8); NEUTROPHILS PERCENT AUTO 88.1 % (42.2-75.2); PLATELET COUNT,PLT 214 10^3/uL (150-450); RED BLOOD CELL COUNT 4.03 10^6/uL (4.6-6.2); WHITE BLOOD CELL COUNT,WBC 12.9 10^3/uL (5.0-10.0)
[2023-07-02 06:34] LABS: HEMOGLOBIN A1C 5.5 % (<5.7)
[2023-07-02 06:50] LABS: ANION GAP 14.5 mEq/L (7-13); BILIRUBIN DIRECT 0.3 mg/dL (0.0-0.2); BILIRUBIN TOTAL 0.7 mg/dL (0.2-1.0); C-REACTIVE PROTEIN 15.78 ng/dL (<=0.50); CREATININE 1.2 mg/dL (0.70-1.30); EST CRCL DRUG DOSING (CG) 56.61 mL/min; POTASSIUM,K 4.5 mmol/L (3.5-5.1); PROTEIN TOTAL,TP 6.9 g/dL (6.4-8.2)
[2023-07-02 07:03] LABS: A/G RATIO 0.77
[2023-07-02] MEDS: Azithromycin 500 MG in Sodium Chloride 0.9% 250 ML IV SCH (08:39)
[2023-07-02] MEDS: REMDESIVIR 100 MG in Sodium Chloride 0.9% 100 ML IV SCH (08:40)
[2023-07-02] MEDS: cefTRIAXone 1 GM Vial IVPUSH SCH (08:40)
[2023-07-02] MEDS: Dexamethasone 4 MG/ML SDV IVPUSH SCH ×2 (08:42→21:11)
[2023-07-02] MEDS: Insulin Lispro 100 Units/ML 3 ML Vial SUBCUT SCH ×3 (08:48→17:55)
[2023-07-02] MEDS: Enoxaparin 40 MG/0.4 ML Syringe SUBCUT SCH (08:49)
[2023-07-02] MEDS: Multivitamin Tab PO SCH (08:50)
[2023-07-02] MEDS: Mycophenolate Mofetil 250 MG Cap PO SCH ×2 (08:50→21:10)
[2023-07-02] MEDS: Metoprolol Tartrate 25 MG Tab PO SCH ×2 (08:50→21:10)
[2023-07-02] MEDS: guaiFENesin 600 MG Tab.ER PO SCH ×2 (08:50→21:11)
[2023-07-02] MEDS: Saccharomyces Boulardii (Probiotic) 250 MG Cap PO SCH ×2 (08:50→21:11)
[2023-07-02] MEDS: Famotidine 20 MG Tab PO SCH ×2 (08:51→21:10)
[2023-07-02] MEDS: Magnesium Oxide 400 MG Tab PO SCH ×2 (08:51→21:11)
[2023-07-02] MEDS: amLODIPine 5 MG Tab PO SCH (08:51)
[2023-07-02] MEDS: TACROLIMUS 1 MG PO SCH (10:09)
[2023-07-02] MEDS: Sodium Chloride 0.9% 1,000 ML IV SCH (11:43)
[2023-07-02] MEDS: hydrALAZINE 20 MG/ML SDV IVPUSH PRN (12:13)
[2023-07-02] MEDS ORDERED: Pantoprazole 40 MG Vial IVPUSH ONE (13:30)
[2023-07-02] MEDS: Allopurinol 100 MG Tab PO SCH (17:32)
[2023-07-02] MEDS: atorvaSTATin 20 MG Tab PO SCH (21:11)
[2023-07-02] MEDS: Melatonin 3 MG Tab PO SCH (21:11)
[2023-07-02] MEDS: TACROLIMUS 0.5 MG PO SCH (21:12)
[2023-07-02] MEDS: Zolpidem 5 MG Tab PO PRN (21:29)
[2023-07-03 06:44] LABS: BASOPHILS PERCENT AUTO 0.1 % (0.0-1.0); HEMATOCRIT 37.4 % (40.0-54.0); HEMOGLOBIN 12.2 g/dL (14.0-18.0); LYMPHOCYTES PERCENT AUTO 5.6 % (20.5-50.1); MEAN CORPUSCULAR HEMOGLOBIN 32.9 pg (27.0-34.0); MEAN CORPUSCULAR HGB CONC 32.6 g/dL (33.0-35.0); MEAN CORPUSCULAR VOLUME 100.8 fL (80-100); MONOCYTES PERCENT AUTO 6.2 % (2-8); NEUTROPHILS PERCENT AUTO 88.1 % (42.2-75.2); PLATELET COUNT,PLT 213 10^3/uL (150-450); RED BLOOD CELL COUNT 3.71 10^6/uL (4.6-6.2); WHITE BLOOD CELL COUNT,WBC 10.6 10^3/uL (5.0-10.0)
[2023-07-03 07:20] LABS: ALBUMIN 2.6 g/dL (3.4-5.0); ANION GAP 12.9 mEq/L (7-13); BILIRUBIN DIRECT 0.2 mg/dL (0.0-0.2); BILIRUBIN TOTAL 0.7 mg/dL (0.2-1.0); BUN/CREATININE RATIO 24.6 (No establ ref range); C-REACTIVE PROTEIN 9.52 ng/dL (<=0.50); CALCIUM 8.8 mg/dL (8.5-10.1); CREATININE 1.3 mg/dL (0.70-1.30); EST CRCL DRUG DOSING (CG) 52.25 mL/min; POTASSIUM,K 4.9 mmol/L (3.5-5.1); PROTEIN TOTAL,TP 6.2 g/dL (6.4-8.2)
[2023-07-03 07:30] LABS: A/G RATIO 0.72
[2023-07-03] MEDS: Dexamethasone 4 MG/ML SDV IVPUSH SCH ×2 (10:23→22:09)
[2023-07-03] MEDS: cefTRIAXone 1 GM Vial IVPUSH SCH (10:23)
[2023-07-03] MEDS: Mycophenolate Mofetil 250 MG Cap PO SCH ×2 (10:25→22:16)
[2023-07-03] MEDS: Magnesium Oxide 400 MG Tab PO SCH ×2 (10:25→22:16)
[2023-07-03] MEDS: Saccharomyces Boulardii (Probiotic) 250 MG Cap PO SCH ×2 (10:25→22:15)
[2023-07-03] MEDS: Multivitamin Tab PO SCH (10:25)
[2023-07-03] MEDS: Famotidine 20 MG Tab PO SCH ×2 (10:26→22:17)
[2023-07-03] MEDS: guaiFENesin 600 MG Tab.ER PO SCH ×2 (10:26→22:16)
[2023-07-03] MEDS: Metoprolol Tartrate 25 MG Tab PO SCH ×2 (10:26→22:16)
[2023-07-03] MEDS: Enoxaparin 40 MG/0.4 ML Syringe SUBCUT SCH (10:27)
[2023-07-03] MEDS: Clopidogrel 75 MG Tab PO SCH (10:27)
[2023-07-03] MEDS: amLODIPine 5 MG Tab PO SCH (10:27)
[2023-07-03] MEDS: Azithromycin 500 MG in Sodium Chloride 0.9% 250 ML IV SCH (10:29)
[2023-07-03] MEDS: REMDESIVIR 100 MG in Sodium Chloride 0.9% 100 ML IV SCH (10:29)
[2023-07-03] MEDS: TACROLIMUS 1 MG PO SCH (10:34)
[2023-07-03] MEDS: Insulin Lispro 100 Units/ML 3 ML Vial SUBCUT SCH ×3 (10:37→17:33)
[2023-07-03] MEDS: CINACALCET 30 MG PO SCH (19:00)
[2023-07-03] MEDS: atorvaSTATin 20 MG Tab PO SCH (22:12)
[2023-07-03] MEDS: Melatonin 3 MG Tab PO SCH (22:12)
[2023-07-03] MEDS: Zolpidem 5 MG Tab PO PRN (22:13)
[2023-07-03] MEDS: TACROLIMUS 0.5 MG PO SCH (22:15)
[2023-07-04 06:34] LABS: BASOPHILS PERCENT AUTO 0.1 % (0.0-1.0); HEMATOCRIT 37.2 % (40.0-54.0); HEMOGLOBIN 11.9 g/dL (14.0-18.0); LYMPHOCYTES PERCENT AUTO 4.6 % (20.5-50.1); MEAN CORPUSCULAR HEMOGLOBIN 32.6 pg (27.0-34.0); MEAN CORPUSCULAR VOLUME 101.9 fL (80-100); MONOCYTES PERCENT AUTO 3.7 % (2-8); NEUTROPHILS PERCENT AUTO 91.6 % (42.2-75.2); PLATELET COUNT,PLT 235 10^3/uL (150-450); RED BLOOD CELL COUNT 3.65 10^6/uL (4.6-6.2); WHITE BLOOD CELL COUNT,WBC 9.2 10^3/uL (5.0-10.0)
[2023-07-04 07:04] LABS: ALBUMIN 2.4 g/dL (3.4-5.0); BILIRUBIN DIRECT 0.2 mg/dL (0.0-0.2); BILIRUBIN TOTAL 0.6 mg/dL (0.2-1.0); C-REACTIVE PROTEIN 4.97 ng/dL (<=0.50); CALCIUM 8.2 mg/dL (8.5-10.1); CREATININE 1.18 mg/dL (0.70-1.30); EST CRCL DRUG DOSING (CG) 57.57 mL/min; PROTEIN TOTAL,TP 5.6 g/dL (6.4-8.2)
[2023-07-04 07:06] LABS: A/G RATIO 0.75
[2023-07-04] MEDS ORDERED: Furosemide 20 MG Tab PO SCH (09:00)
[2023-07-04] MEDS: Insulin Lispro 100 Units/ML 3 ML Vial SUBCUT SCH ×3 (10:38→17:21)
[2023-07-04] MEDS: Azithromycin 500 MG in Sodium Chloride 0.9% 250 ML IV SCH (10:41)
[2023-07-04] MEDS: Enoxaparin 40 MG/0.4 ML Syringe SUBCUT SCH (10:44)
[2023-07-04] MEDS: Magnesium Oxide 400 MG Tab PO SCH ×2 (10:45→21:42)
[2023-07-04] MEDS: Famotidine 20 MG Tab PO SCH ×2 (10:53→21:42)
[2023-07-04] MEDS: Dexamethasone 4 MG/ML SDV IVPUSH SCH ×2 (10:55→21:45)
[2023-07-04] MEDS: cefTRIAXone 1 GM Vial IVPUSH SCH (10:55)
[2023-07-04] MEDS: Metoprolol Tartrate 25 MG Tab PO SCH ×2 (11:02→21:43)
[2023-07-04] MEDS: guaiFENesin 600 MG Tab.ER PO SCH ×2 (11:02→21:43)
[2023-07-04] MEDS: Multivitamin Tab PO SCH (11:04)
[2023-07-04] MEDS: CINACALCET 30 MG PO SCH (11:05)
[2023-07-04] MEDS: amLODIPine 5 MG Tab PO SCH (11:06)
[2023-07-04] MEDS: Clopidogrel 75 MG Tab PO SCH (11:07)
[2023-07-04] MEDS: Mycophenolate Mofetil 250 MG Cap PO SCH ×2 (11:08→21:44)
[2023-07-04] MEDS: TACROLIMUS 1 MG PO SCH (11:11)
[2023-07-04] MEDS: Saccharomyces Boulardii (Probiotic) 250 MG Cap PO SCH ×2 (11:12→21:42)
[2023-07-04] MEDS: REMDESIVIR 100 MG in Sodium Chloride 0.9% 100 ML IV SCH (12:43)
[2023-07-04] MEDS: Allopurinol 100 MG Tab PO SCH (17:21)
[2023-07-04] MEDS: atorvaSTATin 20 MG Tab PO SCH (21:43)
[2023-07-04] MEDS: Melatonin 3 MG Tab PO SCH (21:43)
[2023-07-04] MEDS: Zolpidem 5 MG Tab PO PRN (21:44)
[2023-07-04] MEDS: TACROLIMUS 0.5 MG PO SCH (21:48)
[2023-07-05 07:08] LABS: HEMATOCRIT 37.9 % (40.0-54.0); HEMOGLOBIN 13.1 g/dL (14.0-18.0); LYMPHOCYTES PERCENT AUTO 8.7 % (20.5-50.1); MEAN CORPUSCULAR HEMOGLOBIN 33.6 pg (27.0-34.0); MEAN CORPUSCULAR HGB CONC 34.6 g/dL (33.0-35.0); MEAN CORPUSCULAR VOLUME 97.2 fL (80-100); MONOCYTES PERCENT AUTO 6.6 % (2-8); NEUTROPHILS PERCENT AUTO 84.7 % (42.2-75.2); PLATELET COUNT,PLT 251 10^3/uL (150-450); WHITE BLOOD CELL COUNT,WBC 6.1 10^3/uL (5.0-10.0)
[2023-07-05 07:29] LABS: ALBUMIN 2.7 g/dL (3.4-5.0); ANION GAP 11.6 mEq/L (7-13); BILIRUBIN DIRECT 0.3 mg/dL (0.0-0.2); BILIRUBIN TOTAL 0.7 mg/dL (0.2-1.0); BUN/CREATININE RATIO 26.8 (No establ ref range); C-REACTIVE PROTEIN 3.44 ng/dL (<=0.50); CALCIUM 8.4 mg/dL (8.5-10.1); CREATININE 1.23 mg/dL (0.70-1.30); EST CRCL DRUG DOSING (CG) 55.23 mL/min; POTASSIUM,K 4.6 mmol/L (3.5-5.1); PROTEIN TOTAL,TP 6.1 g/dL (6.4-8.2)
[2023-07-05 07:35] LABS: A/G RATIO 0.79
[2023-07-05] MEDS: Insulin Lispro 100 Units/ML 3 ML Vial SUBCUT SCH ×2 (08:44→13:02)
[2023-07-05] MEDS: Enoxaparin 40 MG/0.4 ML Syringe SUBCUT SCH (08:45)
[2023-07-05] MEDS: amLODIPine 5 MG Tab PO SCH (08:46)
[2023-07-05] MEDS: Mycophenolate Mofetil 250 MG Cap PO SCH (08:46)
[2023-07-05] MEDS: Clopidogrel 75 MG Tab PO SCH (08:47)
[2023-07-05] MEDS: Famotidine 20 MG Tab PO SCH (08:48)
[2023-07-05] MEDS: Saccharomyces Boulardii (Probiotic) 250 MG Cap PO SCH (08:48)
[2023-07-05] MEDS: Magnesium Oxide 400 MG Tab PO SCH (08:48)
[2023-07-05] MEDS: guaiFENesin 600 MG Tab.ER PO SCH (08:48)
[2023-07-05] MEDS: Multivitamin Tab PO SCH (08:48)
[2023-07-05] MEDS: Metoprolol Tartrate 25 MG Tab PO SCH (08:48)
[2023-07-05] MEDS: TACROLIMUS 1 MG PO SCH (08:49)
[2023-07-05] MEDS: CINACALCET 30 MG PO SCH (08:55)
[2023-07-05] MEDS: Dexamethasone 4 MG/ML SDV IVPUSH SCH (09:00)
[2023-07-05] MEDS: cefTRIAXone 1 GM Vial IVPUSH SCH (09:00)
[2023-07-05] MEDS: REMDESIVIR 100 MG in Sodium Chloride 0.9% 100 ML IV SCH (09:02)
[2023-07-05] MEDS: Azithromycin 500 MG in Sodium Chloride 0.9% 250 ML IV SCH (11:15)
[2023-07-05 12:04] VITALS: BP 141/98; PULSE 78
== END 2023-07-05 13:35 | disposition home or self-care (01) | DRG 177 ==
LOC: DL.ED 09:01 → DL.MS 12:29
PROVIDERS: ADMIT Internal Medicine; ATTEND Internal Medicine
PROC: 8E0ZXY6 Isolation (ICD-10-PCS; principal; 2023-07-01)
PROC: XW033E5 Introduction of Remdesivir Anti-infective into Peripheral Vein, Percutaneous Approach, New Technology Group 5 (ICD-10-PCS; 2023-07-01)
PROC: 3E0333Z Introduction of Anti-inflammatory into Peripheral Vein, Percutaneous Approach (ICD-10-PCS; 2023-07-01)
DX: U07.1 COVID-19 (principal); J12.82 Pneumonia due to coronavirus disease 2019; J96.01 Acute respiratory failure with hypoxia; D84.9 Immunodeficiency, unspecified; E87.1 Hypo-osmolality and hyponatremia; E78.5 Hyperlipidemia, unspecified; N40.0 Benign prostatic hyperplasia without lower urinary tract symptoms; M10.9 Gout, unspecified; Z88.1 Allergy status to other antibiotic agents; D64.9 Anemia, unspecified; Z79.82 Long term (current) use of aspirin; R73.9 Hyperglycemia, unspecified; I12.9 Hypertensive chronic kidney disease with stage 1 through stage 4 chronic kidney disease, or unspecified chronic kidney disease; N18.9 Chronic kidney disease, unspecified; I25.10 Atherosclerotic heart disease of native coronary artery without angina pectoris; E78.00 Pure hypercholesterolemia, unspecified; Z98.890 Other specified postprocedural states; Z95.1 Presence of aortocoronary bypass graft; Z86.718 Personal history of other venous thrombosis and embolism; Z94.0 Kidney transplant status; Z90.81 Acquired absence of spleen; Z85.46 Personal history of malignant neoplasm of prostate; Z79.899 Other long term (current) drug therapy; Z86.73 Personal history of transient ischemic attack (TIA), and cerebral infarction without residual deficits; Z88.8 Allergy status to other drugs, medicaments and biological substances
CPT/HCPCS: 0241U; 36415; 71045; 80053; 81001; 82248; 82947; 83036; 83605; 83735; 83880; 84100; 84145; 84484; 85025; 86140; 87040; 87070; 87077; 87186; 87205; 93005; 93010; 94060; 94668; 94762; 99223; 99232; 99238; 99285; A9270-GY; C9113; J0248; J0360; J0456; J0696; J1100; J1650; J1815-GY; J2405; J3490; J7030; J7050

== ENCOUNTER 2024-03-13 03:40 | Emergency (ER) | payer MEDICARE, BC, MEDICAID ==
[2024-03-13 04:13] LABS: BASOPHILS PERCENT AUTO 0.3 % (0.0-1.0); EOSINOPHILS PERCENT AUTO 2.4 % (1.0-3.0); HEMATOCRIT 37.7 % (40.0-54.0); HEMOGLOBIN 12.6 g/dL (14.0-18.0); LYMPHOCYTES PERCENT AUTO 7.5 % (20.5-50.1); MEAN CORPUSCULAR HEMOGLOBIN 33.2 pg (27.0-34.0); MEAN CORPUSCULAR HGB CONC 33.4 g/dL (33.0-35.0); MEAN CORPUSCULAR VOLUME 99.5 fL (80-100); MONOCYTES PERCENT AUTO 13.4 % (2-8); NEUTROPHILS PERCENT AUTO 76.4 % (42.2-75.2); PLATELET COUNT,PLT 262 10^3/uL (150-450); RED BLOOD CELL COUNT 3.79 10^6/uL (4.6-6.2); WHITE BLOOD CELL COUNT,WBC 11.1 10^3/uL (5.0-10.0)
[2024-03-13 04:31] LABS: A/G RATIO 0.94; ALANINE AMINOTRANSFERASE,ALT 25 U/L (16-63); ALBUMIN 3.1 g/dL (3.4-5.0); ALKALINE PHOSPHATASE 100 U/L (46-116); ANION GAP 11.4 mEq/L (7-13); ASPARTATE AMNIOTRANSFERASE,AST 25 U/L (15-37); BILIRUBIN TOTAL 0.7 mg/dL (0.2-1.0); BLOOD UREA NITROGEN,BUN 19 mg/dL (7-18); BUN/CREATININE RATIO 13.3 (No establ ref range); CALCIUM 9.6 mg/dL (8.5-10.1); CARBON DIOXIDE,CO2 29 mmol/L (21-32); CHLORIDE,CL 98 mmol/L (98-107); CREATININE 1.43 mg/dL (0.70-1.30); ESTIMATED GFR 51 mL/min (>=60); GLUCOSE RANDOM 93 mg/dL (70-99); POTASSIUM,K 4.4 mmol/L (3.5-5.1); PROTEIN TOTAL,TP 6.4 g/dL (6.4-8.2); SODIUM,NA 134 mmol/L (136-145)
[2024-03-13 04:56] VITALS: BP 136/83; PULSE 67
[2024-03-13] MEDS: Sodium Chloride 0.9% 1,000 ML IV ONE (05:49)
[2024-03-13 06:06] LABS: APPEARANCE,URINE CLEAR (CLEAR); BILIRUBIN,URINE NEGATIVE (NEGATIVE); COLOR,URINE YELLOW (YELLOW); GLUCOSE,URINE NEGATIVE (NEGATIVE); KETONES,URINE NEGATIVE (NEGATIVE); LEUKOCYTE ESTERASE,URINE NEGATIVE (NEGATIVE); NITRITE,URINE NEGATIVE (NEGATIVE); OCCULT BLOOD,URINE NEGATIVE (NEGATIVE); PH,URINE 5.5 (5.0-9.0); PROTEIN,URINE NEGATIVE (NEGATIVE); UROBILINOGEN,URINE 0.2 mg/dL (0.2-1.0)
== END 2024-03-13 07:20 | disposition home or self-care (01) ==
LOC: DL.ED 03:40
DX: M25.562 Pain in left knee (principal); N17.9 Acute kidney failure, unspecified; I10 Essential (primary) hypertension; I25.10 Atherosclerotic heart disease of native coronary artery without angina pectoris; E78.00 Pure hypercholesterolemia, unspecified; Z95.1 Presence of aortocoronary bypass graft; Z79.899 Other long term (current) drug therapy; Z79.52 Long term (current) use of systemic steroids; Z88.1 Allergy status to other antibiotic agents; Z88.8 Allergy status to other drugs, medicaments and biological substances; W18.30XA Fall on same level, unspecified, initial encounter
CPT/HCPCS: 36415; 70450; 73562; 80053; 81003; 85025; 96360; 99284; J7030

== ENCOUNTER 2024-03-21 20:45 | Emergency (ER) | payer MEDICARE, BC, MEDICAID ==
[2024-03-21 21:05] LABS: BASOPHILS PERCENT AUTO 0.3 % (0.0-1.0); EOSINOPHILS PERCENT AUTO 1.8 % (1.0-3.0); HEMATOCRIT 38.9 % (40.0-54.0); HEMOGLOBIN 13.3 g/dL (14.0-18.0); LYMPHOCYTES PERCENT AUTO 14.5 % (20.5-50.1); MEAN CORPUSCULAR HEMOGLOBIN 33.9 pg (27.0-34.0); MEAN CORPUSCULAR HGB CONC 34.2 g/dL (33.0-35.0); MEAN CORPUSCULAR VOLUME 99.2 fL (80-100); MONOCYTES PERCENT AUTO 12.6 % (2-8); NEUTROPHILS PERCENT AUTO 70.8 % (42.2-75.2); PLATELET COUNT,PLT 349 10^3/uL (150-450); RED BLOOD CELL COUNT 3.92 10^6/uL (4.6-6.2); WHITE BLOOD CELL COUNT,WBC 9.9 10^3/uL (5.0-10.0)
[2024-03-21 21:16] LABS: PROTHROMBIN TIME 10.4 SEC (9.0-12.0); PTT,PARTIAL THROMBOPLSTIN TIME 23.9 SEC (22.0-34.0)
[2024-03-21 21:19] LABS: A/G RATIO 0.9; ALANINE AMINOTRANSFERASE,ALT 33 U/L (16-63); ALBUMIN 3.4 g/dL (3.4-5.0); ALKALINE PHOSPHATASE 124 U/L (46-116); ASPARTATE AMNIOTRANSFERASE,AST 32 U/L (15-37); BILIRUBIN TOTAL 0.6 mg/dL (0.2-1.0); BLOOD UREA NITROGEN,BUN 20 mg/dL (7-18); BUN/CREATININE RATIO 14.3 (No establ ref range); CALCIUM 10.6 mg/dL (8.5-10.1); CARBON DIOXIDE,CO2 29 mmol/L (21-32); CHLORIDE,CL 101 mmol/L (98-107); GLUCOSE RANDOM 100 mg/dL (70-99); SODIUM,NA 137 mmol/L (136-145)
[2024-03-21 21:26] LABS: ESTIMATED GFR 53 mL/min (>=60)
[2024-03-21] MEDS: Iopamidol 755 Mg/ML 100 ML Bottle IVPUSH ONE (21:41)
[2024-03-21] MEDS: Sodium Chloride 0.9% 10 ML Syringe FLUSH PRN (21:42)
[2024-03-21] MEDS: Sodium Chloride 0.9% 500 ML IV SCH (21:43)
[2024-03-21] MEDS: Aspirin 81 MG Tab.Chew PO ONE (23:16)
[2024-03-21 23:22] LABS: APPEARANCE,URINE CLEAR (CLEAR); BILIRUBIN,URINE NEGATIVE (NEGATIVE); COLOR,URINE YELLOW (YELLOW); GLUCOSE,URINE NEGATIVE (NEGATIVE); KETONES,URINE NEGATIVE (NEGATIVE); LEUKOCYTE ESTERASE,URINE NEGATIVE (NEGATIVE); NITRITE,URINE NEGATIVE (NEGATIVE); OCCULT BLOOD,URINE NEGATIVE (NEGATIVE); PH,URINE 7.5 (5.0-9.0); PROTEIN,URINE NEGATIVE (NEGATIVE); UROBILINOGEN,URINE 0.2 mg/dL (0.2-1.0)
[2024-03-21 23:42] LABS: BACTERIA,URINE RARE /HPF (0-FEW/HPF); EPITHELIAL CELLS,URINE RARE /HPF (NOT SEEN); RBC,URINE 0-5 /HPF (0-5); WBC,URINE 0-5 /HPF (0-5/HPF)
[2024-03-22 00:12] VITALS: BP 162/119; PULSE 79
== END 2024-03-22 00:06 ==
LOC: DL.ED 20:45
DX: I63.89 Other cerebral infarction (principal); I21.4 Non-ST elevation (NSTEMI) myocardial infarction; I10 Essential (primary) hypertension; Z88.1 Allergy status to other antibiotic agents; Z91.048 Other nonmedicinal substance allergy status; Z86.73 Personal history of transient ischemic attack (TIA), and cerebral infarction without residual deficits; Z79.899 Other long term (current) drug therapy
CPT/HCPCS: 36415; 70450; 70496; 70498; 71045; 80053; 81001; 83735; 84484; 85025; 85610; 85730; 93005; 94762; 99285; A9270; J7040; Q9967; J3490

== ENCOUNTER 2024-04-13 14:06 | Emergency (ER) | payer MEDICARE, BC, MEDICAID ==
[2024-04-13 14:36] VITALS: BP 124/86; PULSE 101
[2024-04-13 14:49] LABS: BASOPHILS PERCENT AUTO 0.1 % (0.0-1.0); EOSINOPHILS PERCENT AUTO 0.7 % (1.0-3.0); HEMATOCRIT 42.2 % (40.0-54.0); HEMOGLOBIN 13.9 g/dL (14.0-18.0); LYMPHOCYTES PERCENT AUTO 12.7 % (20.5-50.1); MEAN CORPUSCULAR HEMOGLOBIN 33.4 pg (27.0-34.0); MEAN CORPUSCULAR HGB CONC 32.9 g/dL (33.0-35.0); MEAN CORPUSCULAR VOLUME 101.4 fL (80-100); MONOCYTES PERCENT AUTO 5.5 % (2-8); PLATELET COUNT,PLT 264 10^3/uL (150-450); RED BLOOD CELL COUNT 4.16 10^6/uL (4.6-6.2); WHITE BLOOD CELL COUNT,WBC 10.5 10^3/uL (5.0-10.0)
[2024-04-13 15:01] LABS: A/G RATIO 0.84; ALBUMIN 3.1 g/dL (3.4-5.0); ANION GAP 11.1 mEq/L (7-13); BILIRUBIN TOTAL 0.6 mg/dL (0.2-1.0); BUN/CREATININE RATIO 14.3 (No establ ref range); CALCIUM 11.1 mg/dL (8.5-10.1); CREATININE 1.68 mg/dL (0.70-1.30); EST CRCL DRUG DOSING (CG) 38.36 mL/min; POTASSIUM,K 4.1 mmol/L (3.5-5.1); PROTEIN TOTAL,TP 6.8 g/dL (6.4-8.2)
[2024-04-13] MEDS: Sodium Chloride 0.9% 1,000 ML IV ONE (15:05)
[2024-04-13 15:41] LABS: APPEARANCE,URINE CLEAR (CLEAR); BILIRUBIN,URINE NEGATIVE (NEGATIVE); COLOR,URINE YELLOW (YELLOW); GLUCOSE,URINE NEGATIVE (NEGATIVE); KETONES,URINE NEGATIVE (NEGATIVE); LEUKOCYTE ESTERASE,URINE NEGATIVE (NEGATIVE); NITRITE,URINE NEGATIVE (NEGATIVE); OCCULT BLOOD,URINE NEGATIVE (NEGATIVE); PROTEIN,URINE NEGATIVE (NEGATIVE); UROBILINOGEN,URINE 0.2 mg/dL (0.2-1.0)
== END 2024-04-13 17:11 | disposition home or self-care (01) ==
LOC: DL.ED 14:06
DX: R55 Syncope and collapse (principal); R07.9 Chest pain, unspecified; E78.00 Pure hypercholesterolemia, unspecified; I12.9 Hypertensive chronic kidney disease with stage 1 through stage 4 chronic kidney disease, or unspecified chronic kidney disease; N18.9 Chronic kidney disease, unspecified; Z91.048 Other nonmedicinal substance allergy status; Z88.1 Allergy status to other antibiotic agents; Z79.899 Other long term (current) drug therapy; Z95.1 Presence of aortocoronary bypass graft; Z86.73 Personal history of transient ischemic attack (TIA), and cerebral infarction without residual deficits
CPT/HCPCS: 36415; 70450; 71045; 80053; 81003; 83690; 83735; 84484; 85025; 87804; 93005; 93010; 96360; 99284; 99285-25; J7030; U0002

== ENCOUNTER 2024-08-30 14:57 | Emergency (ER) | payer MEDICARE, BC, MEDICAID ==
[2024-08-30] MEDS ORDERED: Sodium Chloride 0.9% 10 ML Syringe FLUSH PRN ×2 (15:32)
[2024-08-30 15:58] LABS: BASOPHILS PERCENT AUTO 0.3 % (0.0-1.0); EOSINOPHILS PERCENT AUTO 0.2 % (1.0-3.0); HEMATOCRIT 35.4 % (40.0-54.0); HEMOGLOBIN 11.6 g/dL (14.0-18.0); LYMPHOCYTES PERCENT AUTO 7.2 % (20.5-50.1); MEAN CORPUSCULAR HEMOGLOBIN 32.4 pg (27.0-34.0); MEAN CORPUSCULAR HGB CONC 32.8 g/dL (33.0-35.0); MEAN CORPUSCULAR VOLUME 98.9 fL (80-100); MONOCYTES PERCENT AUTO 13.3 % (2-8); PLATELET COUNT,PLT 240 10^3/uL (150-450); RED BLOOD CELL COUNT 3.58 10^6/uL (4.6-6.2); WHITE BLOOD CELL COUNT,WBC 10.8 10^3/uL (5.0-10.0)
[2024-08-30 16:26] LABS: ALBUMIN 3.3 g/dL (3.4-5.0); ANION GAP 15.4 mEq/L (7-13); BILIRUBIN TOTAL 0.7 mg/dL (0.2-1.0); BUN/CREATININE RATIO 14.5 (No establ ref range); CALCIUM 9.2 mg/dL (8.5-10.1); CREATININE 1.17 mg/dL (0.70-1.30); EST CRCL DRUG DOSING (CG) 57.19 mL/min; POTASSIUM,K 4.4 mmol/L (3.5-5.1); PROTEIN TOTAL,TP 6.8 g/dL (6.4-8.2)
[2024-08-30] MEDS: Ondansetron 4 MG/2 ML SDV IVPUSH ONE (16:26)
[2024-08-30 16:27] LABS: A/G RATIO 0.94
[2024-08-30] MEDS: Sodium Chloride 0.9% 500 ML IV SCH (16:30)
[2024-08-30 16:31] LABS: INR 1.1 (0.9-1.2); PROTHROMBIN TIME 11.4 SEC (9.0-12.0)
[2024-08-30] MEDS: Take Home: Promethazine 25 MG, 4 Tab Pack PO ONE (17:31)
[2024-08-30 17:50] VITALS: BP 188/107; PULSE 93
== END 2024-08-30 17:40 | disposition home or self-care (01) ==
LOC: DL.ED 14:57
DX: J40 Bronchitis, not specified as acute or chronic (principal); R11.10 Vomiting, unspecified; E78.00 Pure hypercholesterolemia, unspecified; I25.10 Atherosclerotic heart disease of native coronary artery without angina pectoris; I12.9 Hypertensive chronic kidney disease with stage 1 through stage 4 chronic kidney disease, or unspecified chronic kidney disease; N18.9 Chronic kidney disease, unspecified; Z86.73 Personal history of transient ischemic attack (TIA), and cerebral infarction without residual deficits; Z88.1 Allergy status to other antibiotic agents; Z91.048 Other nonmedicinal substance allergy status; Z88.8 Allergy status to other drugs, medicaments and biological substances; Z79.899 Other long term (current) drug therapy
CPT/HCPCS: 36415; 71045; 80053; 83880; 84484; 85025; 85610; 87428-QW; 93005; 96374; 99285-25; A9270-GY; J2405; J7030

== ENCOUNTER 2025-04-07 05:47 | Day surgery (SDC) | payer MEDICARE, BC, MEDICAID ==
[2025-04-07] MEDS ORDERED: Propofol 200 MG/20 ML SDV IV ONE (05:48)
[2025-04-07] MEDS ORDERED: Lactated Ringers 1,000 ML IV ONE (05:48)
[2025-04-07] MEDS: Lactated Ringers 1,000 ML IV SCH (06:29)
[2025-04-07 08:40] VITALS: BP 171/86; PULSE 80
[2025-04-07] MEDS ORDERED: Propofol 200 MG/20 ML SDV ONE (09:34)
== END 2025-04-07 08:45 | disposition home or self-care (01) ==
LOC: DL.ENDO 05:47
PROVIDERS: ATTEND Internal Medicine Gastroenterology
DX: K29.50 Unspecified chronic gastritis without bleeding (principal); K29.80 Duodenitis without bleeding; K31.89 Other diseases of stomach and duodenum; K44.9 Diaphragmatic hernia without obstruction or gangrene; K25.9 Gastric ulcer, unspecified as acute or chronic, without hemorrhage or perforation; I25.10 Atherosclerotic heart disease of native coronary artery without angina pectoris; I12.0 Hypertensive chronic kidney disease with stage 5 chronic kidney disease or end stage renal disease; N18.6 End stage renal disease; D63.1 Anemia in chronic kidney disease; Z88.8 Allergy status to other drugs, medicaments and biological substances; Z79.01 Long term (current) use of anticoagulants; Z79.899 Other long term (current) drug therapy
CPT/HCPCS: 00731; 43239; 99100; J2003; J2704; J7120; 88305; 88342